=== PATIENT | female | born 1990 | race Two or more races ===

== ENCOUNTER 2017-09-08 15:23 | Observation (INO) | payer SELFPAY ==
[2017-09-08] VITALS (8 sets, daily range): BP systolic 132–156; BP diastolic 53–74; PULSE 95–114; RESP 22; TEMP 98.1–98.7
[~2017-09-08] VITALS: Ht 165.1 cm; Wt 171.0 kg
[~2017-09-08 15:23] MED LIST: PREN1TAB30
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
[2017-09-08 16:35] LABS: BACTERIA, URINE RARE /hpf; BILIRUBIN, URINE NEG (NEG); BLOOD, URINE MOD (NEG); GLUCOSE,URINE 150 mg/dL (NEG); KETONE, URINE NEG (NEG); NITRITE,URINE NEG (NEG); PH, URINE 5.5 (5.0-8.5); SQUAMOUS EPITHELIAL CELL URINE 3 /hpf (0-5); URINE COLOR YELLOW (YELLW/STRAW); URINE LEUKOCYTE ESTERASE NEG (NEG)
[2017-09-08 17:18] LABS: HEMATOCRIT 33.5 % (35.0-46.0); HEMOGLOBIN 11.3 GM/DL (11.6-15.3); MEAN CELL VOLUME 82.3 FL (80.0-100.0); MEAN CORPUSCULAR HEMOGLOBIN 27.8 PG (27.0-34.0); MEAN CORPUSCULAR HGB CONC 33.8 % (32.0-36.0); PLATELET COUNT 236 TH/MM3 (150-450); RED BLOOD COUNT 4.07 MIL/MM3 (4.00-5.30); RED CELL DISTRIBUTION WIDTH 14.5 % (11.6-17.2)
[2017-09-08 17:39] LABS: ALBUMIN 2.4 GM/DL (3.4-5.0); ALT (GPT) 22 U/L (10-53); AST (GOT) 15 U/L (15-37); BICARBONATE 24.6 MEQ/L (21.0-32.0); BLOOD UREA NITROGEN 11 MG/DL (7-18); CALCIUM 9.4 MG/DL (8.5-10.1); CHLORIDE 106 MEQ/L (98-107); CREATININE 0.68 MG/DL (0.50-1.00); GLOMERULAR FILTRATION RATE 103 ML/MIN (>89); GLUCOSE,RANDOM 95 MG/DL (74-106); SODIUM (NA) 139 MEQ/L (136-145)
[2017-09-08 17:42] LABS: ALKALINE PHOSPHATASE 91 U/L (45-117); TOTAL BILIRUBIN ADULT 0.2 MG/DL (0.2-1.0); TOTAL PROTEIN 6.9 GM/DL (6.4-8.2)
--- NOTE | 2017-09-08 17:54 | HHI.PR ---
SECURITIES LENDING TRADER Note Note See TOMMY noted by Dr Chu Repeat bp have improved 135/63, 145/74. Patient is asymptomatic with h/o eclampsia with 1st , seizure occured post . Pt states blood pressures improved rapidly after delivery and were normal by 6 weeks. Laboratory Tests Test 09/08/17 15:40 09/08/17 16:15 Urine Color YELLOW Urine Turbidity HAZY Urine pH 5.5 Urine Specific [place] 1.029 Urine Protein 100 mg/dL Urine Glucose (UA) 150 mg/dL Urine Ketones NEG mg/dL Urine Occult Blood MOD Urine Nitrite NEG Urine Bilirubin NEG Urine Urobilinogen LESS THAN 2.0 MG/DL Urine Leukocyte Esterase NEG Urine RBC 2 /hpf Urine WBC 2 /hpf Urine Squamous Epithelial Cells 3 /hpf Urine Bacteria RARE /hpf Microscopic Urinalysis Comment CULT NOT INDICATED White Blood Count 9.0 TH/MM3 Red Blood Count 4.07 MIL/MM3 Hemoglobin 11.3 GM/DL Hematocrit 33.5 % Mean Corpuscular Volume 82.3 FL Mean Corpuscular Hemoglobin 27.8 PG Mean Corpuscular Hemoglobin Concent 33.8 % Red Cell Distribution Width 14.5 % Platelet Count 236 TH/MM3 Mean Platelet Volume 9.0 FL Blood Urea Nitrogen 11 MG/DL Creatinine 0.68 MG/DL Random Glucose 95 MG/DL Total Protein 6.9 GM/DL Albumin 2.4 GM/DL Calcium Level 9.4 MG/DL Uric Acid 5.4 MG/DL Alkaline Phosphatase 91 U/L Aspartate Amino Transf (AST/SGOT) 15 U/L Alanine Aminotransferase (ALT/SGPT) 22 U/L Total Bilirubin 0.2 MG/DL Sodium Level 139 MEQ/L Potassium Level 4.4 MEQ/L Chloride Level 106 MEQ/L Carbon Dioxide Level 24.6 MEQ/L Anion Gap 8 MEQ/L Estimat Glomerular Filtration Rate 103 ML/MIN Sonogram: EFW 5#7oz, 2461gms c/w [id number] MARTINA 21.31 Doppler 2.84, vertex Plan 23hr obs for 24 hr protein/creat clearance. Will need 1hr GTT given her size>dates and high MARTINA Cathy Crowley MD Sep 08, 2017 17:54
[2017-09-08] MEDS ORDERED: ALUMINUM/MAGNESIUM/SIMETH 30 ML CUP PO PRN (18:00)
[2017-09-08] MEDS ORDERED: ACETAMINOPHEN 325 MG TAB PO PRN (18:00)
[2017-09-08] MEDS ORDERED: SODIUM CHLORIDE 0.9% FLUSH 10 ML FLUSH IV FLUSH PRN (18:00)
[2017-09-08] MEDS: SODIUM CHLORIDE 0.9% FLUSH 10 ML FLUSH IV FLUSH SCH (21:00)
[2017-09-09] VITALS (9 sets, daily range): BP systolic 134–146; BP diastolic 56–81; PULSE 79–92; RESP 18–22; TEMP 97.9–98.2
[2017-09-09] MEDS: SODIUM CHLORIDE 0.9% FLUSH 10 ML FLUSH IV FLUSH SCH ×2 (09:00→21:00)
[2017-09-09] MEDS: MULTIVIT/MIN/PREN/FOL AC/IRON PRENATAL TAB PO SCH (09:24)
--- NOTE | 2017-09-09 09:36 | HHI.PR ---
IVORY CARVER Note Note Subjective: Patient is doing well this AM. No complaints at this time. Afebrile. VSS. She denies CP, SOB, and N/V. Physical Exam: GENERAL: Well-nourished, well-developed patient. SKIN: Warm and dry. HEAD: Normocephalic. CARDIOVASCULAR: Regular rate and rhythm without murmurs, gallops, or rubs. RESPIRATORY: Breath sounds equal bilaterally. No accessory muscle use. FHTs: category 1, reactive, moderate variability, no decels GASTROINTESTINAL: Abdomen soft, non-tender, nondistended. EXTREMITIES: No cyanosis, or edema. NEUROLOGICAL: Awake, alert, and oriented x 3. Non-focal. Vital Signs Date Time Temp Pulse Resp B/P (MAP) Pulse Ox O2 Delivery O2 Flow Rate FiO2 09/09/17 07:31 83 135/81 (99) 09/09/17 07:30 98.2 18 Laboratory Tests Test 09/08/17 15:40 09/08/17 16:15 Urine Color YELLOW Urine Turbidity HAZY Urine pH 5.5 Urine Specific [place] 1.029 Urine Protein 100 mg/dL Urine Glucose (UA) 150 mg/dL Urine Ketones NEG mg/dL Urine Occult Blood MOD Urine Nitrite NEG Urine Bilirubin NEG Urine Urobilinogen LESS THAN 2.0 MG/DL Urine Leukocyte Esterase NEG Urine RBC 2 /hpf Urine WBC 2 /hpf Urine Squamous Epithelial Cells 3 /hpf Urine Bacteria RARE /hpf Microscopic Urinalysis Comment CULT NOT INDICATED White Blood Count 9.0 TH/MM3 Red Blood Count 4.07 MIL/MM3 Hemoglobin 11.3 GM/DL Hematocrit 33.5 % Mean Corpuscular Volume 82.3 FL Mean Corpuscular Hemoglobin 27.8 PG Mean Corpuscular Hemoglobin Concent 33.8 % Red Cell Distribution Width 14.5 % Platelet Count 236 TH/MM3 Mean Platelet Volume 9.0 FL Blood Urea Nitrogen 11 MG/DL Creatinine 0.68 MG/DL Random Glucose 95 MG/DL Total Protein 6.9 GM/DL Albumin 2.4 GM/DL Calcium Level 9.4 MG/DL Uric Acid 5.4 MG/DL Alkaline Phosphatase 91 U/L Aspartate Amino Transf (AST/SGOT) 15 U/L Alanine Aminotransferase (ALT/SGPT) 22 U/L Total Bilirubin 0.2 MG/DL Sodium Level 139 MEQ/L Potassium Level 4.4 MEQ/L Chloride Level 106 MEQ/L Carbon Dioxide Level 24.6 MEQ/L Anion Gap 8 MEQ/L Estimat Glomerular Filtration Rate 103 ML/MIN Current Medications Medications (Trade) Dose Ordered Sig/Michael Route PRN Reason Start Time Stop Time Status Last Admin Dose Admin Acetaminophen (Tylenol) 650 mg Q4H PRN PO PAIN SCALE 1 TO 5 09/08/17 18:00 Prenat Multivit/ [place]/Iron/Folic Ac ([place] Plus 3 ) 1 tab DAILY PO 09/09/17 09:00 09/09/17 09:24 Al Hydrox/Mg Hydrox/Simethicone (Mag-Al Plus Susp Liq) 30 ml QID PRN PO HEARTBURN 09/08/17 18:00 Sodium Chloride (NS Flush) 2 ml BID IV FLUSH 09/08/17 21:00 Sodium Chloride (NS Flush) 2 ml UNSCH PRN IV FLUSH FLUSH AFTER USING IV ACCESS 09/08/17 18:00 A/P:27-year-old at 31/1 weeks gestation with history of eclampsia and a prior presenting with elevated blood pressure reading #1 IUP heart tones 140s, reassuring #2 elevated blood pressure reading -hx of post- eclampsia, at 38 weeks Up to 170s systolic in clinic, first blood pressure readings were 156 and 132 here in the OB ER - Blood pressures improved to 135/81 today - 24 hr urine - will be completed at 5:30 pm today -Patient started on 81mg aspirin daily -UA 1+ -CBC wnl -LFTs wnl -Uric acid wnl #3 Gestation DM -1 hr GTT completed, 230 -Glyburide 5mg once -Glucose checks, 2hr post-prandial -A1C% ordered -consult diabetic education Sonogram: EFW 5#7oz, 2461gms c/w [id number] MARTINA 21.31 Doppler 2.84, vertex Shawna Reese MD R1 Sep 09, 2017 09:36
[2017-09-09] MEDS ORDERED: glyBURIDE 5 MG TAB PO ONE (10:45)
[2017-09-09] MEDS: ASPIRIN 81 MG CHEW TAB PO SCH (11:11)
[2017-09-09] MEDS ORDERED: MENTHOL LOZENGE BUCCAL PRN (15:45)
[2017-09-09 16:40] LABS: HEMOGLOBIN A1C 7.2 % (4.3-6.0)
[2017-09-10] VITALS (8 sets, daily range): BP systolic 123–135; BP diastolic 65–87; PULSE 79–90; RESP 18–20; TEMP 97.9–98.8
[2017-09-10] MEDS: glyBURIDE 2.5 MG TAB PO SCH ×2 (08:00→17:21)
[2017-09-10] MEDS: ASPIRIN 81 MG CHEW TAB PO SCH (08:49)
[2017-09-10] MEDS: MULTIVIT/MIN/PREN/FOL AC/IRON PRENATAL TAB PO SCH (08:49)
[2017-09-10] MEDS: SODIUM CHLORIDE 0.9% FLUSH 10 ML FLUSH IV FLUSH SCH (09:00)
--- NOTE | 2017-09-10 10:00 | PD.OB.ANTE ---
Subjective Interval History Feeling well. No acute events last 24 hours. Antepartum ROS: Reports: movement normal, Denies: New complaints, Loss of fluid, Vaginal bleeding, Contractions, Other Objective Vital Signs Vital Signs Date Time Temp Pulse Resp B/P (MAP) Pulse Ox O2 Delivery O2 Flow Rate FiO2 09/10/17 07:54 98.8 18 09/10/17 07:50 90 124/68 (86) 09/10/17 03:07 79 133/65 (87) 09/09/17 23:04 79 140/72 (94) 09/09/17 23:03 98.0 22 09/09/17 19:25 85 143/77 (99) 09/09/17 19:24 20 09/09/17 19:24 98.1 09/09/17 15:38 92 134/60 (84) 09/09/17 11:58 98.2 Lab & Micro Results Test 09/09/17 11:37 09/09/17 17:30 Hemoglobin A1c 7.2 % Urine Total Volume 24 Hours 950 ML Urine Total Protein 24 Hour 911 MG/24HR Physical Exam GENERAL: Well-nourished, well-developed patient. CARDIOVASCULAR: Regular rate and rhythm without murmurs, gallops, or rubs. RESPIRATORY: Breath sounds equal bilaterally. No accessory muscle use. ABDOMEN/GI: Abdomen soft, non-tender. Fundus: [-] GENITOURINARY: External Genitalia: intact and normal in appearance Cervix: [-] Dilatation: [-] Effacement: [-] Station: [-] Presentation: [-] Membranes: [-] Uterine Contractions: [-] FHT's: Category: [-] Baseline: [-] Reactive: [-] Variability: [-] Decels: [-] EXTREMITIES: No cyanosis or edema, non-tender, without signs of DVT. Assessment and Plan Assessment and Plan 7-year-old at 31/1 weeks gestation with history of eclampsia and a prior presenting with elevated blood pressure reading #1 IUP heart tones 140s, reassuring #2 elevated blood pressure reading - hx of post- eclampsia, at 38 weeks - Up to 170s systolic in clinic, first blood pressure readings were 156 and 132 here in the OB ER - Blood pressures last 24 hours 130s, maximum 143 (see above) - 24 hr urine ~1900, likely due to diabetes -Continue 81mg aspirin daily -UA 1+ protein -CBC wnl -LFTs wnl -Uric acid wnl #3 Gestation DM -1 hr GTT completed, 230 -Glyburide 2.5 mg PO BID -Fasting glucose today AM = 106 -A1C 7.2% -consult diabetic education and dietetics, appreciate assistance -Will need glucometer on discharge #4 snoring Given obesity, likely is AASHISH - Call pulmonology to see if CPAP trial can be performed in house. Otherwise, refer as outpatient. Sonogram: EFW 5#7oz, 2461gms c/w [id number] MARTINA 21.31 Doppler 2.84, vertex Bam Chu MD R2 Sep 10, 2017 10:00
[2017-09-10] MEDS ORDERED: GLYB2.5T3 PO (15:59)
[2017-09-10] MEDS ORDERED: ASPI81CH25 PO (15:59)
--- NOTE | 2017-09-10 16:00 | HHI.DCPOC ---
Discharge Care Plan Diagnosis: (1) Gestational diabetes mellitus (2) Sleep apnea Report Symptoms to Your Doctor -Temperature above 100.5 degrees -Redness, of incision or excessive or foul smelling drainage -Unusual pain or calf pain -Increased vaginal bleeding -Painful or difficulty urinating -Feelings of extreme sadness or anxiety after 2 weeks Goals to Promote Your Health * To prevent worsening of your condition and complications * To maintain your health at the optimal level Directions to Meet Your Goals Take your medications as prescribed Follow your dietary instruction Follow activity as directed Ensure plenty of rest for recovery Drink fluids for hydration Keep your appointments as scheduled Take your immunizations and boosters as scheduled If your symptoms worsen call your PCP, if no PCP go to Urgent Care Center or Emergency Room Smoking is Dangerous to Your Health. Avoid second hand smoke Call the 24-hour crisis hotline for domestic abuse at Shawna Reese MD R1 Sep 10, 2017 16:00
[2017-09-10] MEDS ORDERED: BLOOD GLUCOSE M1 KIT (18:08)
[2017-09-10] MEDS ORDERED: GLYB5TAB3 PO (19:36)
[2017-09-10] MEDS ORDERED: ASPI-110 PO (19:37)
== END 2017-09-10 20:18 | disposition home or self-care (01) ==
LOC: HOBED 15:23 → H2EA 17:57
PROVIDERS: ADMIT Obstetrics & Gynecology Obstetrics; ATTEND Obstetrics & Gynecology Obstetrics
DX: O16.3 Unspecified maternal hypertension, third trimester (principal); Z3A.31 31 weeks gestation of pregnancy; H53.9 Unspecified visual disturbance; O24.419 Gestational diabetes mellitus in pregnancy, unspecified control; G47.33 Obstructive sleep apnea (adult) (pediatric)
CPT/HCPCS: 36415; 76816; 80053; 81001; 82948; 82951; 83036; 84157; 84550; 85027; 99285; G0378

== ENCOUNTER 2017-09-17 07:47 | Emergency (ER) | payer SELFPAY ==
[~2017-09-17] VITALS: Ht 165.1 cm; Wt 137.0 kg
[~2017-09-17 07:47] MED LIST changes: +ASPI1TAB57 PO; +ASPI81CH25 PO; +BLOOD GLUCOSE M1 KIT; +GLYB2.5T3 PO; +GLYB5TAB3 PO
[2017-09-17 07:52] VITALS: BP 202/92; PULSE 80; RESP 16; TEMP 97.6; O2SAT 80
--- NOTE | 2017-09-17 08:05 | PD ---
HPI Chief Complaint: Hypertension Time Seen by Provider: 07:56 Travel History International Travel<30 days: No Contact w/Intl Traveler<30days: No Traveled to known affect area: No History of Present Illness HPI The patient is a 27-year-old female who presents to the emergency department for elevated blood pressure so she would mild headache, chest discomfort, and abdominal discomfort. The patient states she was recently hospitalized women's care for 3 days for elevated blood pressure. The patient was discharged home and told to take a baby aspirin daily. The patient does have a history of hypertension during with her first , but denies hypertension between pregnancies. The patient is unsure if she had eclampsia/preeclampsia during her first . She denies any acute visual changes. She does note mild lower extremity edema. She is unsure if she has a history of sleep apnea, was advised to follow up outpatient for possible sleep apnea study. She does complain of mild edema of lower extremities, abdominal discomfort, chest discomfort, mild headache. She denies any diplopia or blurry vision. She is not currently on any antihypertensives. The patient is whose. First delivery was section for elevated blood pressure. She is followed outpatient by Dr. Song. [facility] Past Medical History ?: LMP: January Social History Alcohol Use: No Tobacco Use: No Allergies-Medications (Allergen,Severity, Reaction): Coded Allergies: No Known Allergies (Unverified , 09/08/17) Reported Meds & Prescriptions Reported Meds & Active Scripts Active Blood Glucose Monitoring W/Device (Device) 1 Kit Kit Kit .ROUTE DIRECTED Glyburide 2.5 Mg Tab 2.5 Mg PO BID@ Take with meals at the same time each day Aspirin Low Strength (Aspirin) 81 Mg Chew 81 Mg PO DAILY Reported Aspirin 81 (Aspirin) 81 Mg Tabdr 81 Mg PO DAILY Glyburide 5 Mg Tab 2.5 Mg PO BID Take with meals at the same time each day Vitamin 27-0.8 mg ( Vit W/ Ferrous Fumara) 27 Mg Iron-800 Mcg Tab Review of Systems Except as stated in HPI: all other systems reviewed are Neg Eyes: No: Blurred Vision HENT: Positive: Headaches Cardiovascular: Positive: Chest Pain or Discomfort Respiratory: No: Shortness of Breath Gastrointestinal: Positive: Abdominal Pain, No: Nausea, Vomiting Musculoskeletal: Positive: Edema Physical Exam Narrative GENERAL: Awake, alert, very pleasant 27-year-old female who appears her stated age and is in no acute respiratory distress. SKIN: Focused skin assessment warm/dry. HEAD: Atraumatic. Normocephalic. EYES: Pupils equal and round. No scleral icterus. No injection or drainage. ENT: No nasal bleeding or discharge. Mucous membranes pink and moist. NECK: Trachea midline. No JVD. CARDIOVASCULAR: Regular rate and rhythm. No murmur appreciated. RESPIRATORY: No accessory muscle use. Clear to auscultation. Breath sounds equal bilaterally. GASTROINTESTINAL: Abdomen soft, gravid. MUSCULOSKELETAL: No obvious deformities. No clubbing. No cyanosis. Bilateral trace edema. NEUROLOGICAL: Awake and alert. No obvious cranial nerve deficits. Motor grossly within normal limits. Normal speech. PSYCHIATRIC: Appropriate mood and affect; insight and judgment normal. Data Data Last Documented VS Vital Signs Date Time Temp Pulse Resp B/P (MAP) Pulse Ox O2 Delivery O2 Flow Rate FiO2 09/17/17 07:52 97.6 80 16 202/92 (128) 80 MDM Medical Decision Making Medical Screen Exam Complete: Yes Emergency Medical Condition: Yes Medical Record Reviewed: Yes Differential Diagnosis Differential diagnosis includes hypertension and , preeclampsia, essential hypertension, sleep apnea. Narrative Course The patient's 32 weeks , last menstrual cycle was in January, EDC his mid to late October. The patient may have hypertension in versus preeclampsia versus essential hypertension. A call was placed to OB ED who will evaluate the patient. The patient may benefit from outpatient follow-up in regards to possible sleep apnea. Diagnosis Primary Impression: Hypertension affecting in third trimester Condition: Nikolas Grove MD Sep 17, 2017 08:05
--- NOTE | 2017-09-17 09:52 | PD ---
HPI Chief Complaint lightheadedness Date Seen: Sep 17, 2017 Time Seen: 09:00 Travel History International Travel<30 Days: No Contact w/Intl Traveler<30Days: No Known Affected Area: No History of Present Illness HPI 19-year-old at 32/2 weeks gestation with history of gestational diabetes controlled with oral hypoglycemic agents, eclampsia and prior , preeclampsia and current in the third trimester presenting for lightheadedness since this morning as well as a mild headache. Also endorses occasional burning chest pain, about once per day, usually associated with position. Has cramping about once every 3 hours, but does not feel that these are labor contractions. Denies vaginal bleeding, leakage of fluid. Versus movement. Due to the lightheadedness and history of eclampsia, she was concerned about her blood pressure prompting her to come to the ER. She is not having any spotty vision, epigastric pain. She is having some swelling. History Past Medical History Medical History: Denies Significant Hx Obstetric History Obstetric History Prior baby delivered at term h/o eclampsia Past Surgical History Surgical History: No Previous Surgery Family History Family History: Negative Social History Alcohol Use: No Tobacco Use: No Substance Abuse: No Allergies-Medications (Allergen,Severity, Reaction): Coded Allergies: No Known Allergies (Unverified , 09/08/17) Home Meds Active Scripts Blood Glucose Monitoring W/Device (Blood Glucose Monitoring W/Device) 1 Kit Kit , KIT .ROUTE DIRECTED for Blood Sugar Management, #1 0 Refills Prov:Shawna Reese MD R1 09/10/17 Glyburide (Glyburide) 2.5 Mg Tab, 2.5 MG PO BID@, #30 TAB 3 Refills Take with meals at the same time each day Prov:Shawna Reese MD R1 09/10/17 Aspirin (Aspirin Low Strength) 81 Mg Chew, 81 MG PO DAILY, #30 EA 3 Refills Prov:Shawna Reese MD R1 09/10/[address] (Aspirin 81) 81 Mg Tabdr, 81 MG PO DAILY, TAB 0 Refills 09/10/17 Glyburide (Glyburide) 5 Mg Tab, 2.5 MG PO BID for Blood Sugar Management, #60 TAB 0 Refills Take with meals at the same time each day 09/10/17 Vit W/ Ferrous Fumara ( Vitamin 27-0.8 mg) 27 Mg Iron-800 Mcg Tab 09/08/17 Review of Systems Except as stated in HPI: all other systems reviewed are Neg Physical Exam Vital Signs Date Time Temp Pulse Resp B/P (MAP) Pulse Ox O2 Delivery O2 Flow Rate FiO2 09/17/17 07:52 97.6 80 16 202/92 (128) 80 Narrative GENERAL: Well-nourished, well-developed patient. SKIN: Warm and dry. HEAD: Normocephalic and atraumatic. EYES: No scleral icterus. No injection or drainage. ENT: No nasal drainage noted. Mucous membranes pink. Airway patent. CARDIOVASCULAR: Regular rate and rhythm without murmurs, gallops, or rubs. RESPIRATORY: Breath sounds equal bilaterally. No accessory muscle use. ABDOMEN/GI: Abdomen soft, non-tender, no rebound, no guarding FHT's: Category: 1 Baseline: 120 Reactive: Y Variability: moderate Decels: N EXTREMITIES: No cyanosis or edema. NEUROLOGICAL: Awake and alert. Motor and sensory grossly within normal limits. Normal speech. Data Data Vital Signs Reviewed: Yes Orders Orders Vital Signs (Adult) .ON ADMISSION (09/17/17 09:17) ^ Labor Status (09/17/17 09:17) Urinalysis - C+S If Indicated (09/17/17 09:17) ^ Non Stress Test (09/17/17 09:17) ^ Hydration (09/17/17 09:17) Ed Discharge Order (09/17/17 09:50) MDM Medical Record Reviewed: Yes Narrative Course / MDM 19-year-old at 32/2 weeks gestation with history of gestational diabetes, preeclampsia, eclampsia prior presented with lightheadedness #1 IUP Category 1 tracing, reassuring #2 preeclampsia Blood pressure initially elevated to 160s, then spontaneously decreased over the next half hour to 120s to 130s, which is patient's baseline. - Keep routine OB follow-up, next visit scheduled for Wednesday - UA with 1+ protein #3 lightheadedness Fasting glucose this morning 89 by patient log, 93 when checked in ER. On review of glucose logs, patient has a couple episodes of blood sugars down to the 60s her 50s. All of her postprandial glucose checks showed excellent control. - Advised patient to take glyburide 2.5 mg in the evening, but did not take the morning dose since some of her symptoms could be due to these episodes of lower blood sugar. - Continue glucose checks in the morning as 2 hours postprandial - Patient advised to call the OB ER or her UTILITY ASSEMBLER if blood sugars persistently greater than 140, i.e. multiple measurements of 150-170 or greater #4 gestational diabetes mellitus, controlled with to hypoglycemic medications - See above Diagnosis Diagnosis: Primary Impression: Hypertension affecting in third trimester Additional Impression: Gestational diabetes mellitus Qualified Codes: O24.415 - Gestational diabetes mellitus in , controlled by oral hypoglycemic drugs Disposition: DISCHARGE HOME Condition: Good Bam Chu MD R2 Sep 17, 2017 09:52
[2017-09-17 11:16] LABS: BACTERIA, URINE OCC /hpf; BLOOD, URINE TRACE (NEG); COMMENT (UR) CULT NOT INDICATED; CULTURE IF INDICATED CULT NOT INDICATED; GLUCOSE,URINE NEG (NEG); KETONE, URINE NEG (NEG); NITRITE,URINE NEG (NEG); SQUAMOUS EPITHELIAL CELL URINE <1 /hpf (0-5); URINE COLOR COLORLESS (YELLW/STRAW)
[2017-09-28] MEDS ORDERED: GLYB2.5T3 PO (15:36)
== END 2017-09-17 10:05 | disposition home or self-care (01) ==
LOC: HOBED 07:47
DX: O16.3 Unspecified maternal hypertension, third trimester (principal); O24.415 Gestational diabetes mellitus in pregnancy, controlled by oral hypoglycemic drugs; Z3A.32 32 weeks gestation of pregnancy
CPT/HCPCS: 59025; 81001

== ENCOUNTER 2017-10-27 10:34 | Inpatient (IN) | payer OTHER ==
[~2017-10-27] VITALS: Ht 165.1 cm; Wt 147.0 kg
[2017-10-27] VITALS (52 sets, daily range): BP systolic 117–151; BP diastolic 48–97; PULSE 94–127; RESP 20–28; TEMP 98.5; O2SAT 91–100
--- NOTE | 2017-10-27 11:28 | PD ---
History of Present Illness History of Present Illness The patient is a 27-year-old 001 who presents at 38 weeks with a history of a prior delivery she also is reported A2 diabetes of which she reports is well-controlled with glyburide. She scheduled for delivery next week. A review of the patient's previous ultrasound report reveals a fetus that's greater than 97th percentile for gestational age with an abdominal circumference greater than 95th percentile. We discussed a trial of labor with the risks benefits and alternatives to discussed and discussed that a and trial of labor may result in an emergent cc or for labor indications we discussed with her gestational diabetes and large for gestational age suggested on ultrasound she may be at an increased risk for shoulder dystocia which carries with the potential complications of permanent irreversible neurological damage to the fetus including but not limited to brain damage or damage to the nerves that control arm. We discussed that a successful vaginal delivery carries with less risk than a delivery. We discussed the risks of a delivery with pain, infection, bleeding, injury to other organs like the bladder, bowels, nerves, vessels or to the baby, wound infection or breakdown, need for blood transfusion or hysterectomy to save her life, need for another surgery due to complications from the surgery. All of her questions were answered about both a trial of labor and a delivery. We also discussed indications of delivery during a trial of labor including the typical maternal or indications as well as risk of uterine rupture of approximately 1%. The patient had an opportunity to consider and has decided she would like to proceed with a repeat delivery and is declining a trial of labor. Mary Jo Guaman MD Oct 27, 2017 11:28
--- NOTE | 2017-10-27 11:43 | PD ---
HPI Chief Complaint painful contractions, no ROM Date Seen: Oct 27, 2017 Time Seen: 10:55 (Ulices Magana MD R1) Travel History International Travel<30 Days: No Contact w/Intl Traveler<30Days: No Known Affected Area: No (Ulices Magana MD R1) History of Present Illness HPI Ms Orozco is a 27YO at 38 weeks followed at [facility] with prior hx of preeclampsia in 1st complicated by eclamptic seizure after delivery, and preeclampsia this dx in Aug 31 with GDM well controlled on glyburide who presents with elevated BPs in 160s/80s with painful regular contractions approx 3 minutes apart without ROM or vaginal bleeding or discharge. Additionally, pt had emesis x1 this morning consisting of yellowish fluid, non-bloody, and nonbilious. Besides glyburide 2.5 mg, pt takes ASA 81mg and PNV. Pt is GBS and HepB neg, no recent UTIs, no STIs this . Pt had a HANLEY last night that resolved and denies CP, dizziness, visual changes, N/D, SOB (except when daryn), and DVT pain. Weeks Gestation: 38 Para: 1 : 2 Miscarriage: 0 : 0 (Ulices Magana MD R1) History Past Medical History Medical History: Denies Significant Hx (Ulices Magana MD R1) Obstetric History Obstetric History Her last she had an eclamptic seizure after her preeclampsia in 1st and 2nd pregnancies (Ulices Magana MD R1) Past Surgical History Narrative Surgical C/S in 1st (Ulices Magana MD R1) Family History Narrative Family History Mother - living, HTN Father - unknown (Ulices Magana MD R1) Social History Alcohol Use: No Tobacco Use: No Substance Abuse: No (Ulices Magana MD R1) Allergies-Medications (Allergen,Severity, Reaction): Coded Allergies: No Known Allergies (Unverified Adverse Reaction, Unknown, 10/27/17) Home Meds Active Scripts Blood Glucose Monitoring W/Device (Blood Glucose Monitoring W/Device) 1 Kit Kit , KIT .ROUTE DIRECTED for Blood Sugar Management, #1 0 Refills Prov:Shawna Reese MD R1 09/10/17 Aspirin (Aspirin Low Strength) 81 Mg Chew, 81 MG PO DAILY, #30 EA 3 Refills Prov:Shawna Reese MD R1 09/10/17 Reported Medications Glyburide (Glyburide) 2.5 Mg Tab, 2.5 MG PO DAILY for Blood Sugar Management, # 30 TAB 0 Refills Take with meals at the same time each day 10/27/17 Vit W/ Ferrous Fumara ( Vitamin 27-0.8 mg) 27 Mg Iron-800 Mcg Tab 09/08/17 Discontinued Reported Medications Aspirin DR (Aspirin 81) 81 Mg Tabdr, 81 MG PO DAILY, TAB 0 Refills 09/10/17 Glyburide (Glyburide) 5 Mg Tab, 2.5 MG PO BID for Blood Sugar Management, #60 TAB 0 Refills Take with meals at the same time each day 09/10/17 Discontinued Scripts Glyburide (Glyburide) 2.5 Mg Tab, 2.5 MG PO BID@ for gestational diabetes, #30 TAB 3 Refills Take with meals at the same time each day Prov:Long Abrams MD 09/28/17 Review of Systems General / Constitutional: Weight Gain, No: Fever, Chills HENT: No: Headaches Cardiovascular: No: Chest Pain or Discomfort, Palpitations Respiratory: Short of Breath Gastrointestinal: Abdominal Pain, No: Nausea, Vomiting, Diarrhea Genitourinary: No: Urgency, Frequency, Discharge, Vaginal Bleeding Skin: No Rash Neurologic: No: Weakness, Dizziness (Ulices Magana MD R1) Physical Exam Narrative GENERAL: Well-nourished, obese patient in moderate discomfort while daryn. SKIN: Warm and dry. No rashes or lesions HEAD: Normocephalic and atraumatic. EYES: No scleral icterus. No injection or drainage. EOMI. ENT: No nasal drainage noted. Mucous membranes pink. Airway patent. NECK: Supple, trachea midline. No lymphadenopathy CARDIOVASCULAR: Regular rate and rhythm without murmur, gallop, or rub. BP on monitor 163/80 RESPIRATORY: Breath sounds equal bilaterally in all lung monge. No accessory muscle use. Increased WOB during contractions. ABDOMEN/GI: Abdomen tense, non-tender, bowel sounds present, no rebound, no guarding Gravid to 38 weeks size GENITOURINARY: Cervix: posterior Dilatation: 4 Effacement: 100 Station: -1 Presentation: vtx Membranes: intact Uterine Contractions: irregular, 3-5 minutes FHT's: Category: 1 Baseline: 125-130 Reactive: yes Variability: moderate Decels: no EXTREMITIES: No cyanosis or edema. BACK: Nontender without obvious deformity. No CVA tenderness. NEUROLOGICAL: Awake and alert. Motor and sensory grossly within normal limits. Five out of 5 muscle strength in all muscle groups. Normal speech. (Ulices Magana MD R1) Data Data Vital Signs Reviewed: Yes Group B Strep: Negative (Ulices Magana MD R1) MDM Narrative Course / MDM 27YO at 38 weeks w/PMHx of eclamptic seizure following C/S in first and mild preeclampsia and GDM this presents with painful contractions in labor w/o ROM, Cervix 4/100/-1/vtx, and LGA fetus @ 97th percentile on last US, BP 160s/80s. Cat 1 tracing BL 125-130, reactive, moderate , no decels PLAN: -Admit for C/S -Ancef 3g for surgical ppx -Labs: CBC, CMP, uric acid, UA, protein/Cr ratio -Continue ASA 81mg -Continuous monitoring Discussed with Melva Guaman and Javed (Ulices Magana MD R1) Attending Attestation I personally saw the patient with the residents and performed all tee portions of the decision making. (Mary Jo Guaman MD) Ulices Magana MD R1 Oct 27, 2017 11:43 Mary Jo Guaman MD Oct 27, 2017 22:32
[2017-10-27 11:48] LABS: AUTOMATED NEUTROPHIL # 7.2 TH/MM3 (1.8-7.7); BASOPHIL # 0.1 TH/MM3 (0-0.2); BASOPHIL % 0.7 % (0.0-2.0); EOSINOPHIL % 0.2 % (0.0-4.0); HEMATOCRIT 36.7 % (35.0-46.0); HEMO FLAGS DIFF FINAL; LYMPH % 13.2 % (9.0-44.0); LYMPHOCYTE # 1.2 TH/MM3 (1.0-4.8); MEAN CELL VOLUME 83.8 FL (80.0-100.0); MEAN CORPUSCULAR HEMOGLOBIN 28.2 PG (27.0-34.0); MEAN CORPUSCULAR HGB CONC 33.6 % (32.0-36.0); MONO % 5.7 % (0.0-8.0); NEUT % 80.2 % (16.0-70.0); PLATELET COUNT 216 TH/MM3 (150-450); RED BLOOD COUNT 4.38 MIL/MM3 (4.00-5.30); RED CELL DISTRIBUTION WIDTH 15.5 % (11.6-17.2)
[2017-10-27 11:49] LABS: BLOOD, URINE SMALL (NEG); COMMENT (UR) CULT NOT INDICATED; CULTURE IF INDICATED CULT NOT INDICATED; GLUCOSE,URINE NEG (NEG); HYALINE CAST, URINE 1 /lpf (RARE); KETONE, URINE NEG (NEG); MUCUS URINE FEW /lpf (OCC); NITRITE,URINE NEG (NEG); SQUAMOUS EPITHELIAL CELL URINE 5 /hpf (0-5); URINE COLOR YELLOW (YELLW/STRAW)
--- NOTE | 2017-10-27 11:52 | HHI.HP ---
History & Physical H&P HPI Chief Complaint painful contractions, no ROM Date Seen: Oct 27, 2017 Time Seen: 10:55 Travel History International Travel<30 Days: No Contact w/Intl Traveler<30Days: No Known Affected Area: No History of Present Illness HPI Ms Orozco is a 27YO at 38 weeks followed at [facility] with prior hx of preeclampsia in 1st complicated by eclamptic seizure after delivery, and preeclampsia this dx in Aug 31 with GDM well controlled on glyburide who presents with elevated BPs in 160s/80s with painful regular contractions approx 3 minutes apart without ROM or vaginal bleeding or discharge. Additionally, pt had emesis x1 this morning consisting of yellowish fluid, non-bloody, and nonbilious. Besides glyburide 2.5 mg, pt takes ASA 81mg and PNV. Pt is GBS and HepB neg, no recent UTIs, no STIs this . Pt had a HANLEY last night that resolved and denies CP, dizziness, visual changes, N/D, SOB (except when daryn), and DVT pain. Weeks Gestation: 38 Para: 1 : 2 Miscarriage: 0 : 0 History (Limited) History Past Medical History Medical History: Denies Significant Hx Obstetric History Obstetric History Her last she had an eclamptic seizure after her preeclampsia in 1st and 2nd pregnancies Past Surgical History Narrative Surgical C/S in 1st Family History Narrative Family History Mother - living, HTN Father - unknown Social History Alcohol Use: No Tobacco Use: No Substance Abuse: No Allergies-Medications Allergies-Medications (Allergen,Severity, Reaction): Coded Allergies: No Known Allergies (Unverified Adverse Reaction, Unknown, 10/12/17) Home Meds Active Scripts Glyburide (Glyburide) 2.5 Mg Tab, 2.5 MG PO BID@ for gestational diabetes, #30 TAB 3 Refills Take with meals at the same time each day Prov:Long Abrams MD 09/28/17 Blood Glucose Monitoring W/Device (Blood Glucose Monitoring W/Device) 1 Kit Kit , KIT .ROUTE DIRECTED for Blood Sugar Management, #1 0 Refills Prov:Shawna Reese MD R1 09/10/17 Aspirin (Aspirin Low Strength) 81 Mg Chew, 81 MG PO DAILY, #30 EA 3 Refills Prov:Shawna Reese MD R1 09/10/17 Reported Medications Aspirin (Aspirin 81) 81 Mg Tabdr, 81 MG PO DAILY, TAB 0 Refills 09/10/17 Glyburide (Glyburide) 5 Mg Tab, 2.5 MG PO BID for Blood Sugar Management, #60 TAB 0 Refills Take with meals at the same time each day 09/10/17 Vit W/ Ferrous Fumara ( Vitamin 27-0.8 mg) 27 Mg Iron-800 Mcg Tab 09/08/17 ROS Review of Systems General / Constitutional: Weight Gain, No: Fever, Chills HENT: No: Headaches Cardiovascular: No: Chest Pain or Discomfort, Palpitations Respiratory: Short of Breath Gastrointestinal: Abdominal Pain, No: Nausea, Vomiting, Diarrhea Genitourinary: No: Urgency, Frequency, Discharge, Vaginal Bleeding Skin: No Rash Neurologic: No: Weakness, Dizziness Physical Exam Physical Exam Narrative GENERAL: Well-nourished, obese patient in moderate discomfort while daryn. SKIN: Warm and dry. No rashes or lesions HEAD: Normocephalic and atraumatic. EYES: No scleral icterus. No injection or drainage. EOMI. ENT: No nasal drainage noted. Mucous membranes pink. Airway patent. NECK: Supple, trachea midline. No lymphadenopathy CARDIOVASCULAR: Regular rate and rhythm without murmur, gallop, or rub. BP on monitor 163/80 RESPIRATORY: Breath sounds equal bilaterally in all lung monge. No accessory muscle use. Increased WOB during contractions. ABDOMEN/GI: Abdomen tense, non-tender, bowel sounds present, no rebound, no guarding Gravid to 38 weeks size GENITOURINARY: Cervix: posterior Dilatation: 4 Effacement: 100 Station: -1 Presentation: vtx Membranes: intact Uterine Contractions: irregular, 3-5 minutes FHT's: Category: 1 Baseline: 125-130 Reactive: yes Variability: moderate Decels: no EXTREMITIES: No cyanosis or edema. BACK: Nontender without obvious deformity. No CVA tenderness. NEUROLOGICAL: Awake and alert. Motor and sensory grossly within normal limits. Five out of 5 muscle strength in all muscle groups. Normal speech. Data Data Data Vital Signs Reviewed: Yes Group B Strep: Negative MDM MDM Narrative Course / MDM 27YO at 38 weeks w/PMHx of eclamptic seizure following C/S in first and mild preeclampsia and GDM this presents with painful contractions in labor w/o ROM, Cervix 4/100/-1/vtx, and LGA fetus @ 97th percentile on last US, BP 160s/80s. Cat 1 tracing BL 125-130, reactive, moderate , no decels PLAN: -Admit for C/S -Ancef 3g for surgical ppx -Labs: CBC, CMP, uric acid, UA, protein/Cr ratio -Continue ASA 81mg -Continuous monitoring Discussed with Melva Guaman and Ulices Davis MD R1 Oct 27, 2017 11:52
[2017-10-27] MEDS ORDERED: GLUCAGON 1 MG/ML VIAL IM PRN (12:00)
[2017-10-27] MEDS ORDERED: DEXTROSE 50% IN WATER 50 ML VIAL(D50) IV PUSH PRN (12:00)
[2017-10-27] MEDS ORDERED: GLYB2.5T3 PO (12:03)
[2017-10-27] MEDS ORDERED: LACTATED RINGER'S 1000 ML INJ 1,000 ML IV PRN (12:08)
[2017-10-27] MEDS ORDERED: CITRIC ACID-SODIUM CITRATE LIQ 30 ML UDC PO SCH ×2 (12:15→13:00)
[2017-10-27] MEDS ORDERED: ceFAZolin 2 GM PREMIX 50 ML IV ONE (12:15)
[2017-10-27] MEDS ORDERED: SODIUM CHLORID 0.9% 500 ML INJ 500 ML OTHER PRN (12:15)
[2017-10-27 12:17] LABS: ANION GAP 11 MEQ/L (5-15); AST (GOT) 24 U/L (15-37); BICARBONATE 22.5 MEQ/L (21.0-32.0); BLOOD UREA NITROGEN 13 MG/DL (7-18); CHLORIDE 107 MEQ/L (98-107); GLOMERULAR FILTRATION RATE 111 ML/MIN (>89); POTASSIUM 4.5 MEQ/L (3.5-5.1); SODIUM (NA) 140 MEQ/L (136-145); URIC ACID 7.5 MG/DL (2.6-6.0)
[2017-10-27 12:18] LABS: ALT (GPT) 53 U/L (10-53)
[2017-10-27 12:20] LABS: ALKALINE PHOSPHATASE 132 U/L (45-117); TOTAL BILIRUBIN ADULT 0.3 MG/DL (0.2-1.0)
[2017-10-27] MEDS ORDERED: CITRIC ACID-SODIUM CITRATE LIQ 30 ML UDC ONE (12:22)
[2017-10-27] MEDS ORDERED: SODIUM CHLOR 0.9% 1000 ML INJ 1,000 ML OTHER PRN (12:28)
[2017-10-27] MEDS ORDERED: ceFAZolin 2 GM PREMIX 50 ML IV SCH (12:30)
[2017-10-27] MEDS ORDERED: LACTATED RINGER'S 1000 ML INJ 1,000 ML IV ONE (12:30)
[2017-10-27] MEDS ORDERED: LACTATED RINGER'S 1000 ML INJ 1,000 ML IV SCH ×2 (13:00)
--- NOTE | 2017-10-27 14:42 | PD.OB.DELI ---
Procedure Note Section Procedure Performed by Mary Jo Guaman Procedure: Repeat Low Transverse Sec Indication for delivery: Desired elective repeat , Maternal medical problems Informed consent obtained: For anesthesia, For procedure Confirmed correct: Patient, Procedure, Site Anesthesia: Spinal Medication prior to procedure: As documented in eMAR Monitoring during procedure: Blood pressure monitoring, assistant designer, doppler, Pulse oximetry Urinary catheter: Inserted using sterile technique, To dependent drainage, ml urine output (150 clear but concentrated) Sterile preparation: Other (Chloraprep) Position: Supine with wedge to left side Operative Features Skin Incision: Pfannenstiel Uterine Incision: Low transverse w/knife / blunt ext, Low transverse w/knife / scissors Membranes Ruptured: Previously Presentation: Occiput anterior Delivery date: Oct 27, 2017 Delivery time: 12:49 Delivery of : Uneventful : Female One Minute : 8 Five Minute : 9 Status of : Viable, Cord blood Placenta delivered: Intact Medications: Antibiotics, Oxytocin Estimated blood loss: 750 Procedure tolerated: Well Maternal Condition: Stable Condition: Stable Procedure in detail See separately dictated op report. Mary Jo Guaman MD Oct 27, 2017 14:41
[2017-10-27] MEDS ORDERED: SIMETHICONE 80 MG CHEWABLE TAB PO PRN (14:45)
[2017-10-27] MEDS ORDERED: ONDANSETRON HCL 4 MG/2 ML VIAL IV PUSH PRN (14:45)
[2017-10-27] MEDS ORDERED: ACETAMINOPHEN 325 MG TAB PO PRN (14:45)
[2017-10-27] MEDS ORDERED: OXYTOCIN 30 UNITS-500ML PREMIX 500 ML IV ONE (14:45)
[2017-10-27] MEDS ORDERED: ZOLPIDEM TARTRATE 5 MG TAB PO PRN (14:45)
[2017-10-27] MEDS ORDERED: ACETAMINOPHEN 1000 MG/100 ML 100 ML IV ONE ×2 (14:45→15:08)
[2017-10-27] MEDS ORDERED: SODIUM CHLORIDE 0.9% FLUSH 10 ML FLUSH IV FLUSH PRN ×2 (14:45→15:00)
[2017-10-27] MEDS ORDERED: MAGNESIUM SULFATE 4 GM PREMIX 100 ML IV ONE (15:00)
[2017-10-27] MEDS ORDERED: CALCIUM GLUCONATE 10% 1 GM/10 ML VIAL IV PUSH PRN (15:00)
[2017-10-27] MEDS ORDERED: MAGNESIUM SULFATE 4 GM PREMIX 100 ML ONE (15:08)
[2017-10-27] MEDS ORDERED: MAGNESIUM SULFATE 40 GM PREMIX 1,000 ML ONE (15:08)
[2017-10-27] MEDS ORDERED: OXYTOCIN 30 UNITS-500ML PREMIX 500 ML ONE (15:08)
[2017-10-27] MEDS: MAGNESIUM SULFATE 40 GM PREMIX 1,000 ML IV SCH (15:21)
[2017-10-27] MEDS: LACTATED RINGER'S 1000 ML INJ 1,000 ML IV SCH (19:38)
[2017-10-27] MEDS ORDERED: EPIDURAL-DIPHENHYDRAMINE HCL 50 MG CAP PO PRN (19:45)
[2017-10-27] MEDS ORDERED: EPIDURAL-NALOXONE HCL 0.4 MG/ML AMP IV PUSH PRN (19:45)
[2017-10-27] MEDS ORDERED: EPIDURAL-DO NOT ADMINISTER ANTICOAGULANTS PRN (19:45)
[2017-10-27] MEDS ORDERED: EPIDURAL-NO SYSTEMIC NARCOTICS PRN (19:45)
[2017-10-27] MEDS ORDERED: EPIDURAL-DIPHENHYDRAMINE HCL 50 MG/ML VIAL IV PUSH PRN (19:45)
[2017-10-27] MEDS: SODIUM CHLORIDE 0.9% FLUSH 10 ML FLUSH IV FLUSH SCH (21:00)
[2017-10-27] MEDS ORDERED: SODIUM CHLORIDE 0.9% FLUSH 10 ML FLUSH IV FLUSH SCH (21:00)
--- NOTE | 2017-10-27 22:05 | HHI.PR ---
Subjective Remarks Called to see patient for increased respiratory rate. Patient had an increased respiratory rate earlier today when she was sleeping. She reports that she normally previous fairly rapidly. Upon my arrival to the room patient is comfortable and although her respiratory rate is increased to has improved. Her lungs are clear to auscultation bilaterally and her vital signs are stable. She's been told in the past she needs an evaluation for sleep apnea but has not yet had that done. We'll have respiratory see the patient that this continues to be an issue will consider a pulmonology consult or other workup. Objective Vital Signs Date Time Temp Pulse Resp B/P (MAP) Pulse Ox O2 Delivery O2 Flow Rate FiO2 10/27/17 20:50 24 10/27/17 20:35 118 95 10/27/17 20:30 97 10/27/17 20:30 114 10/27/17 20:25 95 10/27/17 20:25 116 10/27/17 20:20 96 10/27/17 20:20 119 10/27/17 20:15 96 10/27/17 20:15 123 10/27/17 20:10 115 10/27/17 20:10 96 10/27/17 20:05 119 10/27/17 20:05 96 10/27/17 20:01 108 151/81 (104) 10/27/17 20:00 112 10/27/17 20:00 96 10/27/17 19:11 98.5 10/27/17 19:01 106 128/64 (85) 10/27/17 19:00 20 10/27/17 18:55 105 97 10/27/17 18:50 105 99 10/27/17 18:45 108 100 10/27/17 18:40 110 96 10/27/17 18:35 107 97 10/27/17 18:30 110 97 10/27/17 18:25 105 96 10/27/17 18:20 111 96 10/27/17 18:15 109 100 10/27/17 18:10 116 98 10/27/17 18:01 106 121/53 (75) 10/27/17 18:00 105 98 10/27/17 17:56 20 10/27/17 17:55 97 10/27/17 17:55 101 10/27/17 17:50 104 10/27/17 17:50 97 10/27/17 17:45 102 10/27/17 17:45 97 10/27/17 17:15 23 97 10/27/17 17:01 94 150/60 (90) 10/27/17 16:51 98 146/59 (88) Result Diagram: 10/27/17 1130 10/27/17 1828 Mary Jo Guaman MD Oct 27, 2017 22:05
[2017-10-28] VITALS (116 sets, daily range): BP systolic 102–150; BP diastolic 51–86; PULSE 91–118; RESP 18–29; TEMP 97.6–98.6; O2SAT 88–100
[2017-10-28] MEDS ORDERED: OXYTOCIN 30 UNITS-500ML PREMIX 500 ML IV PRN (00:45)
[2017-10-28] MEDS: oxyCODONE/ACETAMINOPHEN 5 MG/325 MG TAB PO PRN ×4 (01:12→22:26)
[2017-10-28] MEDS: LACTATED RINGER'S 1000 ML INJ 1,000 ML IV SCH ×4 (01:39→20:53)
[2017-10-28 06:02] LABS: BASOPHIL % 0.4 % (0.0-2.0); EOSINOPHIL % 0.2 % (0.0-4.0); HEMATOCRIT 33.2 % (35.0-46.0); HEMO FLAGS DIFF FINAL; LYMPH % 9.7 % (9.0-44.0); LYMPHOCYTE # 0.9 TH/MM3 (1.0-4.8); MEAN CORPUSCULAR HEMOGLOBIN 28.7 PG (27.0-34.0); MEAN CORPUSCULAR HGB CONC 34.1 % (32.0-36.0); MONO % 7.1 % (0.0-8.0); NEUT % 82.6 % (16.0-70.0); PLATELET COUNT 191 TH/MM3 (150-450); RED BLOOD COUNT 3.96 MIL/MM3 (4.00-5.30); RED CELL DISTRIBUTION WIDTH 16.1 % (11.6-17.2); WHITE BLOOD COUNT 9.7 TH/MM3 (4.0-11.0)
[2017-10-28] MEDS ORDERED: glyBURIDE 2.5 MG TAB PO SCH (08:00)
[2017-10-28] MEDS: SODIUM CHLORIDE 0.9% FLUSH 10 ML FLUSH IV FLUSH SCH ×2 (08:05→20:53)
--- NOTE | 2017-10-28 10:04 | MP ---
cc: PITA GUAMAN MD DATE OF SURGERY October 27, 2017 PREOPERATIVE DIAGNOSES 1. Intrauterine at 38 weeks, 0 days. 2. Morbid obesity. 3. History of preeclampsia with eclampsia after delivery in prior . 4. Type 2 diabetes. 5. Large for gestational age fetus. 6. Preeclampsia. 7. Prior delivery. 8. Labor. PROCEDURE Repeat low transverse section with two layer closure, no extension through a Pfannenstiel skin incision. POSTOPERATIVE DIAGNOSES 1. Intrauterine at 38 weeks, 0 days. 2. Morbid obesity. 3. History of preeclampsia with eclampsia after delivery in prior . 4. Type 2 diabetes. 5. Large for gestational age fetus. 6. Preeclampsia. 7. Prior delivery. 8. Labor. DESCRIPTION OF FINDINGS A viable female in cephalic presentation. Apgars 8 and 9, weighing 9 pounds. The patient had normal maternal anatomy. ATTENDING SURGEON Pita Guaman MD [employer] SPECIALIST Ester Miranda. Dr. Gianna Hernandez SPECIMENS REMOVED Placenta. ESTIMATED BLOOD LOSS 750 cc. URINE OUTPUT 150 cc of concentrated urine but clear at the end of the procedure. IV FLUIDS 1200 cc. INDICATIONS The patient is a 27-year-old 2, para 1-0-0-1, who presented in labor. She desired a repeat delivery. She was noted to have elevated blood pressures and an elevated protein/creatinine ratio concerning for preeclampsia. PROCEDURE DESCRIPTION After obtaining informed consent with risks, benefits and alternatives discussed at length including but not limited to pain, infection, bleeding, injury to other organs such as the bladder, bowels, nerves and vessels, injury to the baby, need for a blood transfusion, need for hysterectomy, need for repeat operation, wound infection, breakdown and other possible complications, the patient was taken to the operating room with reassuring heart tones. She underwent spinal anesthesia in the operating room without complication. She was placed in dorsal supine position with a leftward tilt and reassuring heart tones were confirmed. After confirming adequate anesthesia, the patient was prepped and draped in normal sterile fashion. Adequate anesthesia was once again confirmed and a time-out procedure performed. A Pfannenstiel skin incision was made with the scalpel and carried down to the level of the fascia with the Bovie cautery. The fascia was nicked in the midline with the scalpel and the fascial incision extended laterally with curved Freitas scissors. The Dena clamps were applied to the superior aspect of the fascial incision which was dissected off the underlying rectus muscles bluntly and sharply with the curved Freitas scissors. Dena clamps were applied to the inferior aspect of the fascial incision and dissected off in similar fashion. The rectus muscles were in the midline and the peritoneum entered bluntly. The peritoneum was extended bluntly. The Hilton self-retracting wound retractor was placed and the vesicouterine peritoneum was identified, grasped and entered sharply with the Metzenbaum scissors. This incision was extended laterally and the bladder flap created digitally. The lower uterine segment was incised with the scalpel and the hysterotomy created bluntly. The vertex was elevated to the level of the hysterotomy but was OP and deflexed. The vertex delivered atraumatically followed by atraumatic delivery of the remainder of the . The was vigorous on the field so cord clamping was delayer for 45 seconds. The cord was doubly clamped and cut and the handed off to the waiting team. The placenta was removed manually and the uterus was cleared of all clots and debris. The hysterotomy was repaired with a #1 chromic in a running locked fashion. A second layer of the same suture was used in imbricating fashion after excellent hemostasis was noted. The gutters were cleared of all clots and debris and the maternal anatomy noted to be inspected and noted to be normal. The rectus muscles were reapproximated in the midline with 2-0 chromic. The rectus muscles were reexamined and noted to be hemostatic. The fascia was reapproximated with #1 Vicryl in a running fashion. No fascial defects were noted. The subcutaneous tissue was irrigated with warm normal saline and noted to be hemostatic. The subcutaneous tissue was closed with 2-0 Vicryl in a subcutaneous fashion. The skin edges were reapproximated with 3-0 Monocryl in a subcuticular fashion. Hemostasis and cosmesis were noted. Dermabond was placed followed by a silver impregnated dressing. The patient was taken to the PACU in stable condition. I performed the entire procedure. MD KOLTON Metcalf/ERIC /11:37 PM /9:28 AM
[2017-10-28] MEDS ORDERED: IOHEXOL 350 MG/ML 10 ML VIAL (for RAD DIAG) IVCONTRAST ONE (11:32)
--- NOTE | 2017-10-28 11:50 | RADRPT ---
EXAM DATE/TIME: 10/28/2017 10:59 [facility] COMPARISON: No previous studies available for comparison. INDICATIONS : Shortness of breath, tachycardia. IV CONTRAST: 70 cc Omnipaque 350 (iohexol) IV RADIATION DOSE: 22.98 CTDIvol (mGy) ; Patient body habitus MEDICAL HISTORY : None SURGICAL HISTORY : section. ENCOUNTER: Initial ACUITY: 1 day PAIN SCALE: 0/10 LOCATION: chest TECHNIQUE: Volumetric scanning of the chest was performed using a pulmonary embolism protocol MIP images were re constructed. Using automated exposure control and adjustment of the mA and/or kV according to patien t size, radiation dose was kept as low as reasonably achievable to obtain optimal diagnostic quality images. DICOM format image data is available electronically for review and comparison. Follow-up recommendations for detected pulmonary nodules are based at a minimum on nodule size and pa tient risk factors according to Fleischner Society Guidelines. FINDINGS: PULMONARY ARTERIES: No filling defects are seen in the pulmonary arteries through the segmental level. LUNGS: There is no consolidation or pneumothorax . No concerning pulmonary nodule is visualized. Bilateral vascular prominence is noted. PLEURAE: There is no pleural thickening or pleural effusion. MEDIASTINUM: Heart is moderately enlarged. MUSCULOSKELETAL: Within normal limits for patient age. MISCELLANEOUS: The visualized upper abdominal organs demonstrate no acute abnormality. CONCLUSION: 1. No evidence of pulmonary embolism or acute cardiopulmonary process. 2. Cardiomegaly with bilateral vascular prominence. Suman De La Cruz MD on October 28, 2017 at 11:46 Board Certified Radiologist. This report was verified electronically.
--- NOTE | 2017-10-28 12:05 | HHI.OB ---
Subjective Post Operative Day: 1 Remarks Ms Orozco is a 27YO who delivered via C/S at 38/0 weeks complicated by preeclampsia. Pt slept well, but had tachypnea following , then low O2 sats into the high 80s on RA overnight. Blood glucose checks have been stable in the 90s. She is having a small left periorbital headache this morning, is on Mag sulfate, and denies other neurological sxs such as visual disturbance, balance, or cognitive impairment. Pt is comfortable with pain controlled, not dizzy, taking PO, no ambulation yet due to Mag treatment, voiding and no flatus or BM yet. Lochia is normal. Denies CP, SOB, N/V/D, and DVT pain. Objective Vitals/I&O Vital Signs Date Time Temp Pulse Resp B/P (MAP) Pulse Ox O2 Delivery O2 Flow Rate FiO2 10/28/17 10:01 97 146/71 (96) 10/28/17 09:01 98 140/71 (94) 10/28/17 08:40 91 98 10/28/17 08:35 96 100 10/28/17 08:30 101 99 10/28/17 08:25 97 100 10/28/17 08:20 97 99 10/28/17 08:15 94 99 10/28/17 08:10 93 99 10/28/17 08:05 92 100 10/28/17 08:01 91 134/67 (89) 10/28/17 08:00 94 98 10/28/17 07:55 96 99 10/28/17 07:53 29 10/28/17 07:53 97.6 24 10/28/17 07:50 95 99 10/28/17 07:45 95 99 10/28/17 07:40 99 99 10/28/17 07:35 94 99 10/28/17 07:30 93 100 10/28/17 07:25 92 100 10/28/17 07:20 92 100 10/28/17 07:15 91 96 10/28/17 07:10 91 96 10/28/17 07:05 93 98 10/28/17 07:01 92 131/71 (91) 10/28/17 07:00 95 95 10/28/17 06:55 93 96 10/28/17 06:50 92 97 12/14/17 06:45 95 96 12/14/17 06:40 97 97 12/14/17 06:35 101 100 12/14/17 06:30 103 93 12/14/17 06:25 100 90 12/14/17 06:20 94 88 12/14/17 06:15 99 92 12/14/17 06:10 100 89 12/14/17 06:05 101 92 12/14/17 06:01 99 131/67 (88) 12/14/17 06:00 102 92 12/14/17 05:55 100 92 12/14/17 05:50 102 94 12/14/17 05:45 101 94 12/14/17 05:40 111 98 12/14/17 05:37 98 129/76 (93) 12/14/17 05:35 106 98 12/14/17 05:30 106 96 12/14/17 05:25 105 96 12/14/17 05:20 107 97 12/14/17 05:15 105 94 12/14/17 05:10 105 95 12/14/17 05:05 107 96 12/14/17 05:00 97.7 28 12/14/17 05:00 106 95 12/14/17 04:55 110 97 12/14/17 04:50 114 97 12/14/17 04:35 112 97 12/14/17 04:30 111 95 12/14/17 04:25 112 96 12/14/17 04:20 109 95 12/14/17 04:15 107 95 12/14/17 04:10 110 97 12/14/17 04:05 115 97 12/14/17 04:03 115 102/66 (78) 12/14/17 04:00 112 97 12/14/17 03:55 110 95 12/14/17 03:50 110 96 12/14/17 03:45 112 97 12/14/17 03:40 111 96 12/14/17 03:35 107 95 12/14/17 03:25 106 95 12/14/17 03:20 108 96 12/14/17 03:15 111 97 12/14/17 03:10 109 96 12/14/17 03:05 112 96 12/14/17 03:01 111 140/76 (97) 12/14/17 03:00 112 97 12/14/17 02:55 108 97 17 02:50 106 95 1417 02:45 105 95 1417 02:40 112 97 10/28/17 02:35 106 93 10/28/17 02:30 105 95 10/28/17 02:25 104 94 10/28/17 02:20 103 93 10/28/17 02:15 105 90 10/28/17 02:10 104 91 10/28/17 02:05 108 93 10/28/17 02:01 105 123/59 (80) 10/28/17 02:00 110 94 10/28/17 01:55 106 89 10/28/17 01:45 109 92 10/28/17 01:12 28 10/28/17 01:10 111 96 10/28/17 01:05 113 94 10/28/17 01:01 110 127/56 (79) 10/28/17 01:00 112 95 10/28/17 00:50 111 95 10/28/17 00:45 118 97 10/28/17 00:40 113 94 10/28/17 00:35 114 93 10/28/17 00:30 114 94 17 00:25 115 91 10/28/17 00:20 113 93 10/28/17 00:15 113 94 10/28/17 00:10 111 94 10/28/17 00:05 112 93 10/28/17 00:01 113 129/51 (77) 10/28/17 00:00 114 93 10/27/17 23:20 127 94 17 23:01 118 126/48 (74) 17 23:00 123 98 13/17 22:35 113 92 13/17 22:30 113 92 13/17 22:25 114 94 13/17 22:20 115 93 13/17 22:15 115 93 13/17 22:10 116 93 13/17 22:05 119 94 13/17 22:01 115 120/56 (77) 10/27/17 22:00 28 10/27/17 22:00 117 94 13/17 21:55 113 96 13/17 21:50 122 93 13/17 21:45 115 92 12/13/17 21:40 117 91 10/27/17 21:35 116 92 17 21:30 116 94 13/17 21:20 124 133/67 (89) 17 21:01 118 117/97 (104) 17 20:50 24 17 20:35 118 95 17 20:30 97 17 20:30 114 10/27/17 20:25 95 17 20:25 116 10/27/17 20:20 96 17 20:20 119 10/27/17 20:15 96 17 20:15 123 10/27/17 20:10 115 10/27/17 20:10 96 10/27/17 20:05 119 10/27/17 20:05 96 10/27/17 20:01 108 151/81 (104) 10/27/17 20:00 112 10/27/17 20:00 96 10/27/17 19:11 98.5 10/27/17 19:01 106 128/64 (85) 10/27/17 19:00 20 17 18:55 105 97 13/17 18:50 105 99 13/17 18:45 108 100 10/27/17 18:40 110 96 10/27/17 18:35 107 97 10/27/17 18:30 110 97 10/27/17 18:25 105 96 10/27/17 18:20 111 96 17 18:15 109 100 17 18:10 116 98 13/17 18:01 106 121/53 (75) 17 18:00 105 98 13/17 17:56 20 10/27/17 17:55 97 13/17 17:55 101 13/17 17:50 104 13/17 17:50 97 13/17 17:45 102 13/17 17:45 97 13/17 17:15 23 97 1317 17:01 94 150/60 (90) 17 16:51 98 146/59 (88) Result Diagram: 10/28/17 0427 10/27/17 1828 Objective Remarks GENERAL: Well-nourished, well-developed morbidly obese patient in NAD. CARDIOVASCULAR: Regular rate and rhythm without murmur, gallop, or rub. Normal cap refill. RESPIRATORY: Breath sounds equal bilaterally in all lung monge. No accessory muscle use. No increased WOB. ABDOMEN/GI: Abdomen soft, non-tender, bowel sounds present. Appropriately distended. Incision: Clean, dry and intact. Fundus: Firm, non-tender at umbilicus. GENITOURINARY: Light to moderate bleeding. EXTREMITIES: No cyanosis, non-tender, without signs of DVT. Bilateral legs with 1+ pitting edema below the knees (pt states edema is improving). Medications and IVs Current Medications Medications (Trade) Dose Ordered Sig/Michael Route Start Time Stop Time Status Last Admin Cefazolin Sodium/ Dextrose 50 ml @ 100 mls/hr EGG GRADER IV 10/27/17 12:30 10/31/17 12:29 Cefazolin Sodium 1000 mg/Sodium Chloride 100 ml @ 200 mls/hr EGG GRADER IV 10/27/17 12:30 10/31/17 12:29 (D50w (Vial) Inj) 50 ml UNSCH PRN IV PUSH 10/27/17 12:00 (Glucagon Inj) 1 mg STAT PRN IM 10/27/17 12:00 Sodium Chloride 500 ml @ 1,000 mls/hr ONCE PRN OTHER 10/27/17 12:15 11/10/17 12:14 (Bicitra Liq) 30 ml EGG GRADER PO 10/27/17 12:15 10/31/17 12:14 10/27/17 12:25 Lactated Ringer's 1,000 ml @ 100 mls/hr Q10H IV 10/27/17 19:38 10/28/17 15:37 Oxytocin 500 ml @ 100 mls/hr UNSCH X1 PRN IV 10/28/17 00:45 10/29/17 00:44 (Mylicon Chew) 80 mg QID PRN PO 10/27/17 14:45 (Tylenol) 650 mg Q6H PRN PO 10/27/17 14:45 10/28/17 06:39 (Motrin) 600 mg Q6H PRN PO 10/27/17 14:45 (Percocet 5-325 Mg) 1 tab Q4H PRN PO 10/27/17 14:45 10/28/17 01:12 (Percocet 5-325 Mg) 2 tab Q4H PRN PO 10/27/17 14:45 (Chelo-Colace) 2 tab Q12H PRN PO 10/27/17 14:45 (Ambien) 5 mg HS PRN PO 10/27/17 14:45 (M-M-R Ii Inj) 0.5 ml ONCE ONCE SQ 10/28/17 16:00 10/28/17 16:01 (Boostrix Inj) 0.5 ml ONCE ONCE IM 10/28/17 16:00 10/28/17 16:01 (Zofran Inj) 4 mg Q6H PRN IV PUSH 10/27/17 14:45 Lactated Ringer's 1,000 ml @ 75 mls/hr [id number] IV 10/27/17 14:48 10/28/17 01:39 (NS Flush) 2 ml UNSCH PRN IV FLUSH 10/27/17 15:00 (NS Flush) 2 ml BID IV FLUSH 10/27/17 21:00 Magnesium Sulfate 1,000 ml @ 50 mls/hr Q20H IV 10/27/17 14:48 10/27/17 15:21 (Calcium Gluconate Inj) 1 gm UNSCH PRN IV PUSH 10/27/17 15:00 Miscellaneous Information NO SYSTEMIC NARCOTICS TO BE GIVEN FO... UNSCH PRN .XX 10/27/17 19:45 10/28/17 19:44 (Narcan Inj) 0.4 mg UNSCH PRN IV PUSH 10/27/17 19:45 10/28/17 19:44 (Benadryl Inj) 25 mg Q6H PRN IV PUSH 10/27/17 19:45 10/28/17 19:44 10/27/17 22:47 (Benadryl) 50 mg Q6H PRN PO 10/27/17 19:45 10/28/17 19:44 Miscellaneous Information ALL NURSING DEPARTMENTS UNSCH PRN .XX 10/27/17 19:45 10/28/17 19:44 Assessment/Plan Assessment and Plan 27YO POD#1 from repeat C/S due to preeclampsia and GDM with elevated BPs in 160s/80s yesterday. Pt stable with normalizing BPs but still a few spikes into 140s/80s range. Low O2 sats overnight. Blood glucose stable in 90s and holding glyburide. Small periorbital headache this morning still on Mag. Tolerating PO, no ambulation yet due to Mag, pain controlled, voiding but no flatus or BM yet. PLAN: -Routine post-op care with addition of: --Blood sugar checks for GDM --Holding glyburide for now --Continue Mag until 24hr point --Vitals with BP management threshold set as below --Hydralazine 5mg IV PRN if BP >160/systolic and/or 100/diastolic --Pulmonary consult --CTA-PE scan -Pt to follow-up with her Dr in 1 week for post-op check and 6 weeks for check -Advised to take showers only (no baths) for 2-3 weeks -Will advise to ambulate when Mag is discontinued -Advised to place nothing in the vagina for 6 weeks (no sexual activity) -Pt considering control options Consider for discharge in 1-2 days. Pt seen and discussed with Mynor Ewing and Ulices Davis MD R1 Oct 28, 2017 12:05
[2017-10-28] MEDS ORDERED: hydrALAZINE HCL 20 MG/ML VIAL IV PUSH PRN (12:15)
[2017-10-28] MEDS: IBUPROFEN 600 MG TAB PO PRN ×2 (12:15→18:05)
[2017-10-28] MEDS ORDERED: MEASLES, MUMPS, RUBELLA VACCINE 0.5 ML VIAL SQ ONE (16:00)
[2017-10-28] MEDS ORDERED: DIPHTH/TETANUS/ACEL PERTUSSIS (BOOSTER) 0.5 ML VIAL/PFS IM ONE (16:00)
[2017-10-28] MEDS: DOCUSATE SODIUM 50 MG/SENNA 8.6 MG TAB PO PRN (18:04)
[2017-10-28 22:07] LABS: BLOOD GAS BASE EXCESS 0.5 mmol/L (-2-2); BLOOD GAS HCO3 24 mmol/L (22-26); BLOOD GAS METHEMOGLOBIN 1.3 % (0-2); BLOOD GAS O2 HGB SATURATION 95 % (90-100); BLOOD GAS OXYGEN CONTENT 15.6 Vol % (12.0-20.0); BLOOD GAS PCO2 36 mmHg (38-42); BLOOD GAS PO2 95 mmHg (61-120); BLOOD GAS TOTAL HGB 11.7 G/DL (12.0-16.0); CRITICAL VALUE NO; FIO2 21 %; OXYGEN DEVICE ROOM AIR; TEMP CORR TO 98.6
[2017-10-28 22:08] LABS: DRAW SITE LT RADIAL; NUMBER OF ARTERIAL PUNCTURES 1; STAT YES; ULNAR PULSE PRESENT
[2017-10-29] VITALS (19 sets, daily range): BP systolic 138–173; BP diastolic 69–105; PULSE 84–98; RESP 16–24; TEMP 98.1–99; O2SAT 97–99
[2017-10-29] MEDS: oxyCODONE/ACETAMINOPHEN 5 MG/325 MG TAB PO PRN ×4 (02:50→22:51)
[2017-10-29] MEDS: IBUPROFEN 600 MG TAB PO PRN ×4 (02:50→22:51)
[2017-10-29] MEDS: MAGNESIUM SULFATE 40 GM PREMIX 1,000 ML IV SCH (04:43)
--- NOTE | 2017-10-29 08:48 | HHI.OB ---
Subjective Post Operative Day: 2 Remarks Ms Orozco had elevated BPs overnight in 142-150/73-89 range and again this morning to 179/98 with repeat at 156/87. She was seen by Dr Jackson, pulmonology yesterday, who ordered an ECHO study for today and PFTs. CT-PE yesterday was negative for PE; however, showed cardiomegaly and increased pulmonary vascular markings. Pt pain controlled, some ambulation since yesterday , taking PO, voiding and flatus but no BM. Notes improvement in leg and feet swelling and left periorbital HANLEY resolved yesterday. Lochia is decreasing. Denies CP, SOB, N/V/D, and DVT pain. Objective Vitals/I&O Vital Signs Date Time Temp Pulse Resp B/P (MAP) Pulse Ox O2 Delivery O2 Flow Rate FiO2 10/29/17 08:05 156/87 (110) 10/29/17 08:05 88 10/29/17 08:05 90 173/98 (123) 10/29/17 08:00 98.5 93 20 155/105 (122) 99 10/29/17 04:00 95 22 138/83 (101) 98 10/29/17 04:00 98.8 10/29/17 00:00 95 142/89 (106) 10/29/17 00:00 98.5 24 97 10/28/17 20:00 105 18 150/78 (102) 98 10/28/17 20:00 98.6 10/28/17 20:00 24 10/28/17 15:51 98.0 102 22 148/86 (106) 10/28/17 13:00 26 10/28/17 12:07 100 147/86 (106) 10/28/17 12:06 97.6 10/28/17 12:00 28 10/28/17 11:00 27 10/28/17 10:01 97 146/71 (96) 10/28/17 10:00 29 10/28/17 09:01 98 140/71 (94) 10/28/17 09:00 28 Result Diagram: 10/28/17 0427 10/27/17 3930 Objective Remarks GENERAL: Well-nourished, well-developed morbidly obese patient in NAD. CARDIOVASCULAR: Regular rate and rhythm without murmur, gallop, or rub. Normal cap refill. RESPIRATORY: Breath sounds equal bilaterally in all lung monge. Does not move air well. No accessory muscle use. No increased WOB. ABDOMEN/GI: Abdomen soft, non-tender, bowel sounds present. Appropriately distended. Incision: Clean, dry and intact. Fundus: Firm, non-tender below umbilicus. GENITOURINARY: Light to moderate bleeding. EXTREMITIES: No cyanosis, non-tender, without signs of DVT. Bilateral legs with 1+ pitting edema below the knees (pt states edema is improving). Medications and IVs Current Medications Medications (Trade) Dose Ordered Sig/Michael Route Start Time Stop Time Status Last Admin Cefazolin Sodium/ Dextrose 50 ml @ 100 mls/hr TESTER SOUND IV 10/27/17 12:30 10/31/17 12:29 Cefazolin Sodium 1000 mg/Sodium Chloride 100 ml @ 200 mls/hr TESTER SOUND IV 10/27/17 12:30 10/31/17 12:29 (D50w (Vial) Inj) 50 ml UNSCH PRN IV PUSH 10/27/17 12:00 (Glucagon Inj) 1 mg STAT PRN IM 10/27/17 12:00 Sodium Chloride 500 ml @ 1,000 mls/hr ONCE PRN OTHER 10/27/17 12:15 11/10/17 12:14 (Bicitra Liq) 30 ml TESTER SOUND PO 10/27/17 12:15 10/31/17 12:14 10/27/17 12:25 (Mylicon Chew) 80 mg QID PRN PO 10/27/17 14:45 (Tylenol) 650 mg Q6H PRN PO 10/27/17 14:45 10/28/17 06:39 (Motrin) 600 mg Q6H PRN PO 10/27/17 14:45 10/29/17 02:50 (Percocet 5-325 Mg) 1 tab Q4H PRN PO 10/27/17 14:45 10/28/17 18:05 (Percocet 5-325 Mg) 2 tab Q4H PRN PO 10/27/17 14:45 10/29/17 02:50 (Chelo-Colace) 2 tab Q12H PRN PO 10/27/17 14:45 10/28/17 18:04 (Ambien) 5 mg HS PRN PO 10/27/17 14:45 (Zofran Inj) 4 mg Q6H PRN IV PUSH 10/27/17 14:45 Lactated Ringer's 1,000 ml @ 75 mls/hr [id number] IV 10/27/17 14:48 10/28/17 01:39 (NS Flush) 2 ml UNSCH PRN IV FLUSH 10/27/17 15:00 (NS Flush) 2 ml BID IV FLUSH 10/27/17 21:00 Magnesium Sulfate 1,000 ml @ 50 mls/hr Q20H IV 10/27/17 14:48 10/27/17 15:21 (Calcium Gluconate Inj) 1 gm UNSCH PRN IV PUSH 10/27/17 15:00 Assessment/Plan Assessment and Plan 27YO POD#2 from repeat C/S due to preeclampsia and GDM with elevated BPs last night to 150/89 and this morning to 173/98 that improved to 156/87. Blood glucose <100 yesterday while holding glyburide. Discontinued Mag yesterday. Pain controlled, tolerating PO, ambulating w/o dizziness or neuro sxs, voiding, flatus but no BM yet. Dr Jackson, pulm, saw yesterday and ordered PFTs and ECHO scheduled for today. O2 sats in high 90s overnight on RA. No CP, SOB, N/V/D, DVT pain. PLAN: -Routine post-op care with addition of: --Blood sugar checks for GDM --Holding glyburide --Discontinued Mag 10/28 --Vitals with BP management threshold set as below --Start Labetalol 100mg BID, hold dose if HR<60 OR systolic BP<110 OR diastolic BP<60 --Pulmonary consulted, appreciate recs --PFTs and ECHO pending for today --CTA-PE scan neg for PE; however, increased pulmonary vasc markings w/ cardiomegaly -Pt to follow-up with her Dr in 1 week for post-op check and 6 weeks for check -Advised to take showers only (no baths) for 2-3 weeks -Advised ambulation -Advised to place nothing in the vagina for 6 weeks (no sexual activity) -Pt will discuss control options on f/u with doctor Consider for discharge when pulm signs off and BPs controlled Pt seen and discussed with Ulices Ford MD R1 Oct 29, 2017 08:48
[2017-10-29] MEDS ORDERED: LABETALOL HCL 100 MG TAB PO SCH (09:00)
[2017-10-29] MEDS: DOCUSATE SODIUM 50 MG/SENNA 8.6 MG TAB PO PRN (09:08)
[2017-10-29] MEDS ORDERED: NIFEdipine 30 MG SUSTAINED RELEASE TAB PO ONE (12:45)
--- NOTE | 2017-10-29 14:20 | MB ---
cc: PABLO MARQUEZ DATE OF CONSULTATION 10/28/2017 REASON FOR CONSULTATION Respiratory insufficiency and hypoxia. HISTORY OF PRESENT ILLNESS This is a 27-year-old lady, G2, P1, who was admitted with a history of eclamptic seizure after delivery with a history of preeclampsia. During the she was also noted to be having elevated blood pressures and was hyperglycemic. She was taken for a earlier this week and the patient postoperatively was noted to be hypoxic and had some shortness of breath. A CTA was then performed which showed no evidence of pulmonary emboli but she did have cardiomegaly and the lung monge were essentially unremarkable. The patient has an occasional cough. She has mild allergies with some tightness in the chest and wheezing and has a family history for asthma and allergies. She has had a previous . PAST MEDICAL/SURGICAL HISTORY 1. History of eclamptic seizure after . 2. Preeclampsia first and second . 3. History of borderline hypertension. HABITS The patient does not smoke. No history of alcohol use. She is overweight. FAMILY HISTORY Significant for hypertension in her mother. Her brother has a history of asthma and is on bronchodilators. ALLERGIES None were listed. MEDICATIONS Medication list: 1. Glyburide 2.5 mg b.i.d. 2. Aspirin one daily. REVIEW OF SYSTEMS The patient has lower abdominal discomfort and pain. She has leg edema. Denies any headaches or blackouts. She has some postnasal drip, nasal allergies and hay fever. She has chest tightness and mild wheezing. No nausea or vomiting but did have some vomiting early during her . PHYSICAL EXAMINATION GENERAL: This is a very obese young lady who is alert in no acute distress. She is off oxygen. VITAL SIGNS: Blood pressure 130/80, pulse 90, respirations 22, temperature 97. HEENT: Head is normocephalic. Pupils are reactive. Tongue is moist. Throat is injected. Nasal mucosa is clear. NECK: Supple. No venous distention or lymphadenopathy. Trachea midline. CHEST: Equal movements with decreased excursions. Breath sounds diminished over the periphery. Occasional wheezes in the upper lung monge. HEART: Heart sounds are regular, S1 and S2 with no murmur. ABDOMEN: Soft, benign. No organomegaly but there is tenderness in the lower abdomen. Dressings at the site of . Bowel sounds are active. EXTREMITIES: Minimal edema with good peripheral pulses. There is no calf tenderness. Homans sign is negative. NEUROLOGIC: Reflexes are 1+ with no gross motor deficits. Cranial nerves are grossly intact. SKIN: No lesions. IMPRESSION 1. Reactive airway disease with respiratory insufficiency. 2. Allergic rhinitis. 3. Status post and history of preeclampsia. 4. Hyperglycemia. 5. Exogenous obesity. 6. Possible obstructive sleep apnea. PLAN The patient will be sent for a pulmonary function study with bronchodilators. Nebulized albuterol/Atrovent solution to use three times a day. We may need to add inhaled steroids if she does have significant airway reactivity. The patient will also be sent for a 2-D echocardiogram since the CT suggested an enlarged heart. Will also advise her to come for a sleep study as an outpatient. Weight loss was discussed. I will review the case again after the tests are back. Thank you for this consultation. MD JOHN Osorio/TAYO /12:27 PM /2:05 PM
--- NOTE | 2017-10-29 14:33 | ECHRPT ---
Indication: cardiomegaly CONCLUSIONS Technically very difficult study. The left ventricular systolic function is normal with an estimate d ejection fraction in the range of 60-65%. No definite wall motion abnormalities. Mild concentric left ventr icular hypertrophy. The left atrial size is mildly dilated. Structurally normal tricuspid valve. There is possibly mild to moderate tricuspid valve regurgitation. BP: 150 / 78 HR: 105 Rhythm: MEASUREMENTS (Male / Female) Normal Values Technical Quality: 2D ECHO LV Diastolic Diameter PLAX 4.9 cm 4.2 - 5.9 / 3.9 - 5.3 cm LV Systolic Diameter PLAX 3.3 cm IVS Diastolic Thickness 1.4 cm 0.6 - 1.0 / 0.6 - 0.9 cm LVPW Diastolic Thickness 1.8 cm 0.6 - 1.0 / 0.6 - 0.9 cm LV Relative Wall Thickness 0.6 RV Internal Dim ED PLAX 1.6 cm M-MODE Aortic Root Diameter MM 2.6 cm LA Systolic Diameter MM 4.9 cm LA Ao Ratio MM 1.9 AV Cusp Separation MM 1.4 cm DOPPLER TR Peak Velocity 269.0 cm/s TR Peak Gradient 28.9 mmHg Right Atrial Pressure 10.0 mmHg Pulmonary Artery Systolic Pressu 38.9 mmHg Right Ventricular Systolic Press 38.9 mmHg FINDINGS LEFT VENTRICLE Technically very difficult study. The left ventricular systolic function is normal with an estimate d ejection fraction in the range of 60-65%. No definite wall motion abnormalities. Mild concentric left ventr icular hypertrophy. RIGHT VENTRICLE Normal right ventricular size and systolic function. LEFT ATRIUM The left atrial size is mildly dilated. RIGHT ATRIUM The right atrial size is normal. ATRIAL SEPTUM Normal atrial septal thickness without atrial level shunting by limited color doppler interrogation. AORTA The aortic root and proximal ascending aorta are not well visualized. MITRAL VALVE Structurally normal mitral valve. No mitral valve stenosis or regurgitation. AORTIC VALVE Trileaflet aortic valve. No aortic valve stenosis or regurgitation. TRICUSPID VALVE Structurally normal tricuspid valve. There is possibly mild to moderate tricuspid valve regurgitation. PULMONARY VALVE No pulmonary valve regurgitation or stenosis. VESSELS The inferior vena cava was not well visualized. PERICARDIUM No pericardial effusion. Yann Maddox MD (Electronically Signed) Final Date:29 October 2017 14:33
[2017-10-29] MEDS ORDERED: LABETALOL HCL 100 MG/20 ML VIAL IV PUSH ONE (16:00)
[2017-10-29] MEDS: SODIUM CHLORIDE 0.9% FLUSH 10 ML FLUSH IV FLUSH SCH ×2 (16:52→19:24)
--- NOTE | 2017-10-29 17:50 | HHI.FPPN ---
Addendum to progress note ADDENDUM Reason for addendum: Additonal documentation Additional information This afternoon nursing reported that Ms Orozco had some bleeding around her C- section surgical incision. Dr Magana responded to the bedside with a nurse to inspect at approx 1500 hours. Was told by the pt that she had just taken a shower when she saw some blood coming from the incision. Upon inspection, the surgical incision is clean and intact with trace dried and drying blood along a 3-4 inch portion of the incision. There was no visible erythema, cellulitis, induration or fluctuance around the incision. The incision lies in the crease of the pt's pannus which could make it more susceptible to infection. Pt should change the dressing daily to reduce the risk of infection. Discussed with Dr Javed Magana,Ulices Werner MD R1 Oct 29, 2017 17:50
[2017-10-29] MEDS: LACTATED RINGER'S 1000 ML INJ 1,000 ML IV SCH (19:24)
[2017-10-30] VITALS (148 sets, daily range): BP systolic 123–189; BP diastolic 61–108; PULSE 85–109; RESP 16–24; TEMP 98–98.8; O2SAT 93–100
[2017-10-30] MEDS: MAGNESIUM SULFATE 40 GM PREMIX 1,000 ML IV SCH (00:08)
[2017-10-30] MEDS ORDERED: LABETALOL HCL 100 MG/20 ML VIAL IV PUSH PRN ×3 (07:00→07:30)
[2017-10-30] MEDS ORDERED: MAGNESIUM SULFATE 40 GM PREMIX 1,000 ML IV SCH (07:00)
[2017-10-30] MEDS ORDERED: MAGNESIUM SULFATE 4 GM PREMIX 100 ML IV ONE (07:00)
[2017-10-30] MEDS ORDERED: LACTATED RINGER'S 1000 ML INJ 1,000 ML IV SCH (07:00)
[2017-10-30] MEDS: SODIUM CHLORIDE 0.9% FLUSH 10 ML FLUSH IV FLUSH SCH (09:00)
[2017-10-30] MEDS: LACTATED RINGER'S 1000 ML INJ 1,000 ML IV SCH (09:28)
--- NOTE | 2017-10-30 09:29 | HHI.OB ---
Subjective Post Operative Day: 3 Remarks Postoperative day #3. Elevated BP in the past 24 hours ranging from 164-186/93- 102. Patient noted lesion asymptomatic, denies chest pain, shortness of breath, right upper quadrant pain. She states that she had a slight headache that resolved. Pain well-controlled. Incision clean and intact, draining very small amount of dried serosanguineous material. Lochia less than a period. Denies dysuria. Appetite good. No nausea or vomiting. Positive flatus. No bowel movement. Ambulating in the room. Otherwise, she is doing well this morning and has no other complaints. Objective Vitals/I&O Vital Signs Date Time Temp Pulse Resp B/P (MAP) Pulse Ox O2 Delivery O2 Flow Rate FiO2 10/30/17 08:00 98.6 97 22 155/99 (117) 99 10/30/17 06:25 170/93 (118) 10/30/17 06:10 164/99 (120) 10/30/17 06:05 90 186/93 (124) 10/30/17 06:00 86 24 187/102 (130) 10/30/17 05:00 98.5 85 24 159/83 (108) 99 10/30/17 02:00 98.8 86 20 152/83 (106) 10/29/17 23:00 99.0 93 20 143/69 (93) 10/29/17 20:00 91 155/70 (98) 10/29/17 20:00 98.9 22 99 10/29/17 18:16 98 10/29/17 18:16 90 22 10/29/17 18:15 151/93 (112) 10/29/17 17:35 148/93 (111) 10/29/17 17:09 86 10/29/17 17:08 146/83 (104) 10/29/17 17:00 89 22 148/93 (111) 97 10/29/17 16:35 164/83 (110) 10/29/17 16:30 89 10/29/17 16:00 93 159/97 (117) 10/29/17 14:11 96 155/81 (105) 10/29/17 14:10 98 10/29/17 14:10 166/93 (117) 10/29/17 12:00 98.1 99 10/29/17 12:00 158/100 (119) 10/29/17 12:00 87 16 10/29/17 10:44 84 157/85 (109) Result Diagram: 10/28/17 0427 10/27/17 1828 Objective Remarks GENERAL: Well-nourished, well-developed morbidly obese patient in NAD. CARDIOVASCULAR: Regular rate and rhythm without murmur, gallop, or rub. Normal cap refill. RESPIRATORY: Breath sounds equal bilaterally in all lung monge. Does not move air well. No accessory muscle use. No increased WOB. ABDOMEN/GI: Abdomen soft, non-tender, bowel sounds present. Appropriately distended. Incision: Clean, dry and intact. Fundus: Firm, non-tender below umbilicus. GENITOURINARY: Light to moderate bleeding. EXTREMITIES: No cyanosis, non-tender, without signs of DVT. Medications and IVs Current Medications Medications (Trade) Dose Ordered Sig/Michael Route Start Time Stop Time Status Last Admin Cefazolin Sodium/ Dextrose 50 ml @ 100 mls/hr OTOLARYNGOLOGY PHYSICIAN IV 10/27/17 12:30 10/31/17 12:29 Cefazolin Sodium 1000 mg/Sodium Chloride 100 ml @ 200 mls/hr OTOLARYNGOLOGY PHYSICIAN IV 10/27/17 12:30 10/31/17 12:29 (D50w (Vial) Inj) 50 ml UNSCH PRN IV PUSH 10/27/17 12:00 (Glucagon Inj) 1 mg STAT PRN IM 10/27/17 12:00 Sodium Chloride 500 ml @ 1,000 mls/hr ONCE PRN OTHER 10/27/17 12:15 11/10/17 12:14 (Bicitra Liq) 30 ml OTOLARYNGOLOGY PHYSICIAN PO 10/27/17 12:15 10/31/17 12:14 10/27/17 12:25 (Mylicon Chew) 80 mg QID PRN PO 10/27/17 14:45 (Tylenol) 650 mg Q6H PRN PO 10/27/17 14:45 10/28/17 06:39 (Motrin) 600 mg Q6H PRN PO 10/27/17 14:45 10/29/17 22:51 (Percocet 5-325 Mg) 1 tab Q4H PRN PO 10/27/17 14:45 10/29/17 14:57 (Percocet 5-325 Mg) 2 tab Q4H PRN PO 10/27/17 14:45 10/29/17 22:51 (Chelo-Colace) 2 tab Q12H PRN PO 10/27/17 14:45 10/29/17 09:08 (Ambien) 5 mg HS PRN PO 10/27/17 14:45 (Zofran Inj) 4 mg Q6H PRN IV PUSH 10/27/17 14:45 Lactated Ringer's 1,000 ml @ 75 mls/hr [id number] IV 10/27/17 14:48 10/28/17 01:39 (NS Flush) 2 ml UNSCH PRN IV FLUSH 10/27/17 15:00 (NS Flush) 2 ml BID IV FLUSH 10/27/17 21:00 10/29/17 16:52 Magnesium Sulfate 1,000 ml @ 50 mls/hr Q20H IV 10/27/17 14:48 10/27/17 15:21 (Calcium Gluconate Inj) 1 gm UNSCH PRN IV PUSH 10/27/17 15:00 Lactated Ringer's 1,000 ml @ 75 mls/hr [id number] IV 10/30/17 07:00 Magnesium Sulfate 1,000 ml @ 50 mls/hr Q20H IV 10/30/17 07:00 (Trandate Inj) 20 mg NOW PRN IV PUSH 10/30/17 07:00 10/31/17 06:59 (Trandate Inj) 40 mg NOW PRN IV PUSH 10/30/17 07:15 10/31/17 07:14 (Trandate Inj) 80 mg NOW PRN IV PUSH 10/30/17 07:30 10/31/17 07:29 Assessment/Plan Problem List: (1) delivery delivered ICD Codes: O82 - Encounter for delivery without indication (2) Pre-eclampsia superimposed on chronic hypertension ICD Codes: O11.9 - Pre-existing hypertension with pre-eclampsia, unspecified trimester (3) History of eclampsia ICD Codes: Z87.59 - Personal history of other complications of , childbirth and the puerperium (4) Gestational diabetes mellitus (GDM) affecting second ICD Codes: O24.419 - Gestational diabetes mellitus in , unspecified control; O09.40 - Supervision of with grand multiparity, unspecified trimester (5) Morbid obesity ICD Codes: E66.01 - Morbid (severe) obesity due to excess calories (6) Sleep apnea ICD Codes: G47.30 - Sleep apnea, unspecified Assessment and Plan 27YO POD#3 from repeat C/S due to preeclampsia and GDM with elevated BPs in the last 24 hours. PLAN: -Routine post-op care with addition of: --Restart magnesium due to elevated blood pressures --Vitals with BP management threshold set as below --Procardia 30mg XL PO daily --Labetalol PRN IV doses available as needed --Pulmonary consulted, appreciate recs --ECHO shows EF of 60-65% with mild concentric left ventricular hypertrophy, mildly dilated left atrial size, mild to moderate tricuspid regurgitation --CTA-PE scan neg for PE; however, increased pulmonary vasc markings w/ cardiomegaly --Blood sugar checks for GDM Pt discussed with Dr Funk Discharge Planning Consider for discharge after BPs are well-controlled Eko,Marta Messina MD R2 Oct 30, 2017 09:29
[2017-10-30] MEDS: NIFEdipine 30 MG SUSTAINED RELEASE TAB PO SCH (14:30)
[2017-10-30] MEDS ORDERED: LABETALOL HCL 100 MG/20 ML VIAL IV PUSH ONE (16:15)
[2017-10-30] MEDS: oxyCODONE/ACETAMINOPHEN 5 MG/325 MG TAB PO PRN (17:26)
[2017-10-31] VITALS (41 sets, daily range): BP systolic 141–164; BP diastolic 65–94; PULSE 68–106; RESP 16–18; TEMP 98–99.5; O2SAT 92–99
[2017-10-31] MEDS: MAGNESIUM SULFATE 40 GM PREMIX 1,000 ML IV SCH (06:53)
--- NOTE | 2017-10-31 09:08 | PD.OB.ANTE ---
Subjective Diagnosis: (1) delivery delivered (2) Pre-eclampsia superimposed on chronic hypertension (3) History of eclampsia (4) Gestational diabetes mellitus (GDM) affecting second (5) Morbid obesity (6) Sleep apnea Interval History Pt remains comfortable. Denies headaches or vision changes. Denies any right upper quadrant abdominal pain. Tolerating PO. Malik draining clear Moderate lochia. Objective Vital Signs Vital Signs Date Time Temp Pulse Resp B/P (MAP) Pulse Ox O2 Delivery O2 Flow Rate FiO2 10/31/17 08:01 96 158/84 (108) 10/31/17 08:00 98.1 10/31/17 07:42 18 10/31/17 07:01 93 159/76 (103) 10/31/17 06:01 91 158/94 (115) 10/31/17 06:00 18 10/31/17 05:01 94 159/92 (114) 10/31/17 05:00 18 10/31/17 05:00 16 10/31/17 04:01 94 156/86 (109) 10/31/17 03:28 18 10/31/17 03:25 97 99 10/31/17 03:20 68 92 10/31/17 03:15 89 95 10/31/17 03:10 90 95 10/31/17 03:05 96 98 10/31/17 03:01 92 155/72 (99) 10/31/17 03:00 92 95 10/31/17 02:02 93 163/92 (115) 10/31/17 02:02 18 10/31/17 01:21 18 10/31/17 01:20 93 97 10/31/17 01:15 90 93 10/31/17 01:10 90 96 10/31/17 01:05 90 94 10/31/17 01:01 95 164/87 (112) 10/31/17 01:00 98.0 10/31/17 00:20 97 96 10/31/17 00:19 18 10/31/17 00:15 98 95 10/31/17 00:10 96 97 10/31/17 00:05 95 95 10/31/17 00:01 92 148/91 (110) 10/31/17 00:00 94 96 10/30/17 22:15 97 98 12/16/17 22:13 16 12/16/17 22:10 98 97 12/16/17 22:01 123/61 (81) 12/16/17 22:00 16 12/16/17 21:55 96 12/16/17 21:55 97 12/16/17 21:05 102 98 12/16/17 21:01 104 128/65 (86) 12/16/17 20:55 103 98 12/16/17 20:40 97 12/16/17 20:40 100 16 12/16/17 20:30 103 12/16/17 20:01 144/72 (96) 12/16/17 20:00 16 12/16/17 19:55 103 97 12/16/17 19:50 102 12/16/17 19:01 136/73 (94) 12/16/17 18:55 101 98 12/16/17 18:15 101 12/16/17 18:15 16 96 12/16/17 18:10 103 97 12/16/17 18:05 105 96 12/16/17 18:01 100 160/80 (106) 12/16/17 18:00 98.5 16 12/16/17 18:00 100 96 12/16/17 17:55 96 95 12/16/17 17:50 98 96 12/16/17 17:45 94 94 12/16/17 17:40 94 154/86 (108) 95 12/16/17 17:40 93 12/16/17 17:35 92 99 12/16/17 17:30 100 98 12/16/17 17:25 105 97 12/16/17 17:20 109 99 12/16/17 17:15 100 99 12/16/17 17:10 100 99 12/16/17 17:05 99 96 12/16/17 17:01 96 163/85 (111) 12/16/17 17:00 16 12/16/17 17:00 98 95 12/16/17 16:55 100 98 12/16/17 16:50 97 97 12/16/17 16:45 99 96 12/16/17 16:40 95 96 12/16/17 16:35 96 95 12/16/17 16:30 97 97 12/16/17 16:25 96 97 12/16/17 16:20 97 98 12/16/17 16:15 101 99 12/16/17 16:10 98 96 12/16/17 16:05 104 165/84 (111) 99 12/16/17 16:05 101 12/16/17 16:02 102 12/16/17 16:00 97 96 12/16/17 16:00 98.0 16 12/16/17 15:55 96 95 12/16/17 15:50 96 93 12/16/17 15:45 96 93 12/16/17 15:40 96 95 12/16/17 15:35 97 94 12/16/17 15:30 97 96 12/16/17 15:25 96 97 12/16/17 15:20 102 97 12/16/17 15:15 101 97 12/16/17 15:10 99 97 12/16/17 15:05 99 98 12/16/17 15:00 100 182/92 (122) 97 12/16/17 15:00 100 12/16/17 14:55 100 96 12/16/17 14:47 16 12/16/17 14:44 102 165/88 (113) 12/16/17 14:30 104 100 12/16/17 14:25 103 99 12/16/17 14:20 97 97 12/16/17 14:15 95 96 12/16/17 14:10 95 96 12/16/17 14:05 96 95 12/16/17 14:01 98 189/72 (111) 12/16/17 14:00 16 12/16/17 14:00 96 96 12/16/17 13:55 95 97 12/16/17 13:50 102 98 12/16/17 13:46 96 179/93 (121) 12/16/17 13:45 96 97 12/16/17 13:40 100 98 12/16/17 13:35 99 97 12/16/17 13:31 98 172/96 (121) 12/16/17 13:30 103 99 12/16/17 13:25 97 98 12/16/17 13:20 95 96 12/16/17 13:16 93 182/86 (118) 12/16/17 13:15 96 96 12/16/17 13:10 95 96 12/16/17 13:05 95 97 12/16/17 13:01 97 173/87 (115) 12/16/17 13:00 97 98 16/17 13:00 16 17 12:55 94 96 16/17 12:50 94 95 16/17 12:46 94 183/93 (123) 1617 12:45 93 96 16/17 12:40 93 96 16/17 12:35 91 94 16/17 12:31 93 176/91 (119) 10/30/17 12:30 90 94 16/17 12:25 91 95 16/17 12:20 90 96 16/17 12:16 92 168/91 (116) 10/30/17 12:15 94 96 1617 12:10 92 97 1617 12:05 96 98 17 12:01 93 168/103 (124) 10/30/17 12:00 16 17 12:00 96 98 1617 11:55 93 97 16/17 11:50 96 98 16/17 11:46 96 165/86 (112) 17 11:45 96 100 16/17 11:40 86 94 16/17 11:35 88 97 16/17 11:31 89 163/108 (126) 1617 11:30 88 98 16/17 11:25 88 98 16/17 11:20 91 98 16/17 11:16 91 167/88 (114) 1617 11:15 89 97 16/17 11:10 89 96 16/17 11:05 89 94 16/17 11:01 92 175/102 (126) 1617 11:00 89 95 16/17 10:55 91 94 16/17 10:50 90 94 16/17 10:46 88 176/99 (124) 1617 10:45 90 96 16/17 10:40 93 95 16/17 10:35 93 98 1216/17 10:31 90 165/102 (123) 16/17 10:30 94 98 16/17 10:25 93 98 16/17 10:20 94 98 10/30/17 10:16 93 160/90 (113) 10/30/17 10:15 94 98 10/30/17 10:10 98 98 10/30/17 10:05 94 98 10/30/17 10:01 89 162/86 (111) 10/30/17 10:00 94 98 10/30/17 10:00 16 10/30/17 10:00 98.5 10/30/17 09:55 89 97 10/30/17 09:50 91 96 10/30/17 09:45 89 10/30/17 09:45 94 155/91 (112) 98 10/30/17 09:40 93 96 10/30/17 09:35 99 98 10/30/17 09:30 97 148/86 (106) Physical Exam GENERAL: Well-nourished, well-developed patient. CARDIOVASCULAR: Regular rate and rhythm without murmurs, gallops, or rubs. RESPIRATORY: Breath sounds equal bilaterally. No accessory muscle use. ABDOMEN/GI: Abdomen soft, non-tender. Fundus: firm, non-tender. Appropriately tender at incision. Incision is clean, dry and intact GENITOURINARY: External Genitalia: EXTREMITIES: No cyanosis or edema, non-tender, without signs of DVT. DTRs at patella 1+, no ankle clonus Laurel's negative. Assessment and Plan Problem List: (1) delivery delivered ICD Codes: O82 - Encounter for delivery without indication (2) Pre-eclampsia superimposed on chronic hypertension ICD Codes: O11.9 - Pre-existing hypertension with pre-eclampsia, unspecified trimester (3) History of eclampsia ICD Codes: Z87.59 - Personal history of other complications of , childbirth and the puerperium (4) Gestational diabetes mellitus (GDM) affecting second ICD Codes: O24.419 - Gestational diabetes mellitus in , unspecified control; O09.40 - Supervision of with grand multiparity, unspecified trimester (5) Morbid obesity ICD Codes: E66.01 - Morbid (severe) obesity due to excess calories (6) Sleep apnea ICD Codes: G47.30 - Sleep apnea, unspecified Assessment and Plan 27YO POD#4 from repeat C/S due to preeclampsia and GDM. Pt was transferred to L&D and restarted on Magnessium sulphate o/a elevated BPs. Pt is asymptomatic, with good urine output. BP 140-150s/80s on Procardia XL 30mg. PLAN: -Routine post-op care with addition of: --Should be able to come off Magnessium sulphate at 10:00. Malik can then be discontinued and patient allowed to ambulate. Possible DC home later today if BPs controlled on PO medication. --Procardia 30mg XL PO daily --Labetalol PRN IV doses available as needed Alex Bo MD Oct 31, 2017 09:08
[2017-10-31] MEDS: NIFEdipine 30 MG SUSTAINED RELEASE TAB PO SCH (10:40)
[2017-10-31 17:57] LABS: HEMATOCRIT 34.6 % (35.0-46.0); MEAN CELL VOLUME 83.8 FL (80.0-100.0); MEAN CORPUSCULAR HEMOGLOBIN 28.8 PG (27.0-34.0); MEAN CORPUSCULAR HGB CONC 34.4 % (32.0-36.0); PLATELET COUNT 303 TH/MM3 (150-450); RED BLOOD COUNT 4.13 MIL/MM3 (4.00-5.30); RED CELL DISTRIBUTION WIDTH 15.8 % (11.6-17.2); REVIEW FLAG FINAL; WHITE BLOOD COUNT 8.6 TH/MM3 (4.0-11.0)
[2017-10-31 18:15] LABS: ANION GAP 9 MEQ/L (5-15); AST (GOT) 26 U/L (15-37); BLOOD UREA NITROGEN 14 MG/DL (7-18); CHLORIDE 99 MEQ/L (98-107); GLOMERULAR FILTRATION RATE 110 ML/MIN (>89); POTASSIUM 3.9 MEQ/L (3.5-5.1); SODIUM (NA) 134 MEQ/L (136-145); URIC ACID 6.7 MG/DL (2.6-6.0)
[2017-10-31 18:16] LABS: ALT (GPT) 47 U/L (10-53)
[2017-10-31 18:18] LABS: ALKALINE PHOSPHATASE 101 U/L (45-117); TOTAL BILIRUBIN ADULT 0.4 MG/DL (0.2-1.0)
== END 2017-10-31 19:55 | disposition home or self-care (01) | DRG 765 ==
LOC: HOBED 10:34 → H2EB 11:25 → H1EA 10-28 17:03 → H2EA 10-30 08:30
PROVIDERS: ADMIT Obstetrics & Gynecology; ATTEND Obstetrics & Gynecology
PROC: 10D00Z1 Extraction of Products of Conception, Low, Open Approach (ICD-10-PCS; principal; 2017-10-27)
DX: O34.211 Maternal care for low transverse scar from previous cesarean delivery (principal); O99.42 Diseases of the circulatory system complicating childbirth; Z68.43 Body mass index [BMI] 50.0-59.9, adult; O99.354 Diseases of the nervous system complicating childbirth; I07.1 Rheumatic tricuspid insufficiency; E66.01 Morbid (severe) obesity due to excess calories; O24.425 Gestational diabetes mellitus in childbirth, controlled by oral hypoglycemic drugs; O36.63X0 Maternal care for excessive fetal growth, third trimester, not applicable or unspecified; O99.214 Obesity complicating childbirth; O14.94 Unspecified pre-eclampsia, complicating childbirth; R09.02 Hypoxemia; J45.909 Unspecified asthma, uncomplicated; O99.52 Diseases of the respiratory system complicating childbirth; G47.30 Sleep apnea, unspecified; O10.12 Pre-existing hypertensive heart disease complicating childbirth; Z37.0 Single live birth; Z3A.38 38 weeks gestation of pregnancy; Z82.5 Family history of asthma and other chronic lower respiratory diseases
CPT/HCPCS: 36600; 59025; 71275; 80053; 80074; 80307; 81001; 82570; 82805; 82947; 82948; 84156; 84550; 85025; 85027; 86592; 86850; 86900; 86901; 90715; 93306; 94060; 94150; J0131; J1200; J2590; J3475; J7120; Q9967